=== PATIENT | female | born 1945 | race Caucasian/White ===

== ENCOUNTER → 2018-10-28 10:57 | Outpatient (CLI) | payer MEDICARE, SELFPAY ==
[2018-10-28 13:28] LABS: Body Fluid Mononuclear WBC # 1.953 10^3/uL; Body Fluid Polynuclear WBC # 4.564 10^3/uL; Body Fluid Total Cells Counted 6.525 10^3/ul (0.000-0.000); Red Cell Count/Body Fluid 0.009 10^6/ul; White Blood Count/Body Fluid 6.517 10^3/uL
[2018-10-28 13:44] LABS: Auto B Fluid Analyzer BKGD Ct COUNTS W/IN LIMITS (W/IN LIMITS)
[2018-10-28 13:45] LABS: Appearance/Body Fluid SL CLDY; Color/Body Fluid YELLOW; Source- Body Fluid OTHER
[2018-10-28 15:07] LABS: Body Fluid QC Type(s) BF1Q; Lymphocytes 32 %; Neutrophil (Segs) 68 %
[2018-10-29 14:28] LABS: Pathologist Comment/Body Fluid Reviewed
== END ==
PROVIDERS: Specialist; Referring Provider Family Medicine; Visit Provider Family Medicine
DX: T84.84XA Pain due to internal orthopedic prosthetic devices, implants and grafts, initial encounter (principal)
CPT/HCPCS: 87015; 87070; 87075; 87101; 87116; 87205; 87206; 89050

== ENCOUNTER 2018-12-04 10:58 | Inpatient (IN) | payer MEDICARE, OTHER, SELFPAY ==
[2018-11-25 13:42] VITALS: BP 152/83; PULSE 82; RESP 16; TEMP 36.9; O2SAT 98; BMI 29.9
[2018-11-25 15:00] LABS: Absolute Lymphocyte Count 1.15 X10^3/uL (0.83-4.51); Absolute Neutrophil Count 3.7 X10^3/uL (2.0-7.7); Basophil# 0.03 X10^3/uL; Basophil% 0.5 % (0-1); Eosinophil# 0.03 X10^3/uL; Eosinophils% 0.5 % (0-5); Hematocrit 41.9 % (37-47); Lymphocyte # 1.15 X10^3/ul (4.0); Lymphocyte % 19.3 % (19-41); Mean Corpuscular Hgb 27.7 pg (27.0-32.0); Mean Corpuscular Volume 89.3 fL (81-99); Mean Platelet Vol. 10.5 fl (6.2-12.0); Monocyte# 0.99 X10^3/uL; Monocyte% 16.6 % (0-10); NRBC Flagged by Analyzer 0 % (0-5); Neutrophil % 62.3 % (47-70); Platelet Count 189 K/mm3 (150-450); RBC Distribution Width CV 14.2 % (11.6-14.6); RBC Distribution Width SD 46.5 fl (35.1-43.9); Red Blood Count 4.69 M/mm3 (4.2-5.4)
[2018-11-25 15:34] LABS: Anion Gap 5 (5-15); BUN 18 mg/dL (7-18); BUN/Creat Ratio 23.1 RATIO (10-20); Calcium,Total 8.9 mg/dL (8.5-10.1); Chloride 107 mmol/L (98-107); Creatinine, Serum 0.78 mg/dL (0.55-1.02); EST Glomerular Filtration Rate 77 mL/min (>60); Est Glom Filt Rate - Afr Amer 93 mL/min (>60); Estimated Creatinine Clearance 44.56 ml/min; Glucose 78 mg/dL (74-106); Potassium 3.3 mmol/L (3.5-5.1); Sodium Level 143 mmol/L (136-145)
--- NOTE | 2018-11-25 23:13 | HP.PCM_ITS ---
History and Physical Patient Name: Hilary Escamilla : 1945 From: DERICK TOUSSAINT PA-C DATE OF SURGERY: 12/04/2018 SCHEDULED PROCEDURE: left knee revision with possible antibiotic spacer with intraoperative pathology HISTORY OF PRESENT ILLNESS: Preoperative history and physical exam was performed on November 25, 2018. This is a 73-year-old female whose been having ongoing pain in her left knee. Patient has undergone a previous left partial knee replacement in 2009. She underwent a revision from a partial to a total knee replacement in [address] Parmar. This was then followed by a manipulation of the left knee 3 months later. She has continued to have pain and stiffness since the surgery. Patient denied any postoperative infections. Patient also states she has had a previous aspiration from another joint specialist in which she was told she had findings consistent for an infection. Patient's pain can reach a size of 7/10 with activity. Pain has been aching, stabbing, and sore. Pain is increased going up and down stairs, sitting for extended periods of time, and walking. She has difficult time with activities of daily living including bathing, dressing, and housework. Patient occasionally uses a walker. She has tried nonsteroidal anti-inflammatory meloxicam. Patient has medical history pertinent for back surgery, hypertension, fibromyalgia, ulcers. She currently denies any chest pain, shortness of breath, fevers chills, or recent infections. We are obtaining surgical clearance from her plant operations engineer as well as primary care physician. Patient is scheduled for an upcoming stress test. After failing conservative measures and discussing treatment options with Dr. Ferdinand Gonsales, the patient would like to proceed with a left knee revision with possible antibiotic spacer with intraoperative pathology. REVIEW OF SYSTEMS: ROS: Const: Denies change in appetite, fever and weight change. CV: Denies chest pain, heart murmur and irregular heartbeat. Resp: Reports shortness of breath, but denies cough, pneumonia, tuberculosis and wheezing. GI: Reports hiatal hernia and nausea, but denies constipation, diarrhea, heartburn, rectal itching, bloody stools and vomiting. : Denies incontinence. Musculo: Reports leg swelling, trouble walking and weakness, but denies pain. Skin: Denies Raynaud's, history of shingles and tattoo. Neuro: Reports numbness/tingling but denies ambulatory dysfunction, dizziness and tremor. Psych: Reports stress, but denies anxiety and insomnia. Alex/Lymph: Reports bleeding/bruising tendency, but denies anemia and past transfusion. Reviewed and updated. PAST MEDICAL HISTORY: Advance Care Plan: Other Directive, POA Effective Date: 10/28/2018 Other Directive, LIVING WILL Effective Date: 10/28/2018 PMH: Medical Problems: Arthritis, Fibromyalgia, High Blood Pressure, Hypercholesterolemia, Ulcers, Vascular Disease/ Peripheral Accidents: None Surgical Hx: Bunion Lt, Bunion Rt, Carpal Tunnel Release Lt, Carpal Tunnel Release Rt Knee Replacement Lt - (2017) LT Leg, RT Shoulder Replacement, Back SX Anesthesia Complications: None Assistive Devices: Dentures - TOP, Glasses, Walker Reviewed and updated. SOCIAL HISTORY: SH: Marital: .Occupation: Retired.Work Status: Retired.Hand Dominance: Right- handed. Personal Habits: Cigarette Use: Former.Smokeless Tobacco: Never Used Smokeless Tobacco.E-Cigarette Use: Never used.Alcohol: Denies use.Drug Use: Denies Use.Enjoy Exercising: Never Exercises. Reviewed, no changes. VITALS: Ht: 58 Wt: 173lb Wt k.473 BMI: 36.2 BP: 166/101 Pulse: 79 Resp: 16 T: 97.7 T: 36.5C ALLERGIES: Penicillin Morphine MEDICATIONS: Nexium 40 mg 1po qday, Zetia 10 mg 1po qday, Labetalol HCL 200 mg 1 tab PO bid, Lisinopril 40 mg 1po qday, Aspirin 81 mg 1 tab PO daily, Rosuvastatin Calcium 40 mg 1po qday, Excedrin Extra Strength 250-250-65 mg prn PRE-OP EXAM: General appearance:NORMAL Other: Eyes: Conjunctivae and lids: NORMAL Pupils: ERR Ears, Nose, Mouth, and Throat: NORMAL Other: Inspection of lips, teeth and gums: NORMAL Other: Neck: Examination of neck: no masses noted. Respiratory: Assessment of respiratory effort: NORMAL Other: Auscultation of lungs: clear to auscultation no wheezes, rhonchi or rales. Cardiovascular: Auscultation of heart: regular rate and rhythm, no murmurs, gallops or rubs. Gastrointestinal: Exam of abdomen: soft, nontender, nondistended bowel sounds present. PHYSICAL EXAMINATION: Patient does walk with an antalgic gait with use of walker. Left knee incision is well-healed without erythema or signs of infection. Left knee is warm to touch. Patient does have moderate effusion. Range of motion: Lacks 10 of full extension to 105 flexion. Stable to anterior drawer testing. Sensation intact to light touch. IMAGING STUDIES: Previous x-rays of the left knee shows a well fixed left total knee replacement. The femoral implant is proud anteriorly. The patella tracks well on the sunrise view. Synovasure is negative for infections and cultures were negative. Patient does have a mildly elevated white blood cell count with borderline PMN percentage. IMPRESSION: 1. Painful left total knee arthroplasty with possible infection 2. Hypertension 3. Fibromyalgia 4. Hypercholesterolemia 5. Ulcers 6. Peripheral vascular disease PLAN: Dr. Ferdinand Gonsales did discuss and review with the patient all treatment options including surgical versus nonsurgical options. Patient does wish to proceed with the above-stated procedure. Potential risks, benefits, and complications of the procedure were discussed in detail including but not limited to , infection, nerve and blood vessel damage, persistent pain, numbness, tingling, paresthesias, blood clot, pulmonary embolism, and requirement for possible further surgery. The patient expressed full understanding and has no further questions for the doctor. Patient does agree to proceed with the above-stated procedure and has signed the surgery consent form. This dictation was created using voice recognition software. Phonetic and/or grammatical errors may exist. ___ I have re-examined the patient. There are no clinical changes since date of exam. ___ See progress notes for changes. ___ Dictated on admission Date: Time: Signature:
[2018-12-04] VITALS (13 sets, daily range): BP systolic 102–173; BP diastolic 63–96; PULSE 83–89; RESP 16–18; TEMP 36.7–37.2; O2SAT 84–99; BMI 29.9; BMI 31.6
--- NOTE | 2018-12-04 | KNEE_PTH ---
PATIENT: ELISHA MINOR LOC: MS3 U#:[id number] AGE/SX: 73/F ROOM: MS308 RE12/04/[address]: Dr. Ferdinand Gonsales MD : 1945 BED: 1 DIS: 12/09/2018 SPEC #: [id number] RECD: 12/04/18 15:09 STATUS: RIVER REQ #: [id number] VIK: 12/04/18 00:[address]: Ferdinand Gonsales DEPT: SURGICAL PATHOLOGY RECD BY: Larissa Fernandes ENTERED: 12/04/18 15:40 SP TYPE: TOTAL KNEE OTHR DR: Dr. Amilcar Connors MD Tissues: A - Knee, NOS B - Knee, NOS Procedures: Frozen Section (charge) Frozen Section Add'l ([facility]) Surgery Specimen Level IV HEADER OPERATION: Left knee revision, antibiotic spacer, intraoperative pathology PRE-OP DIAGNOSIS: Painful left total knee arthroplasty with possible infection TISSUE SUBMITTED: A - Left knee synovium for FS at 1509, B - Left knee tibial membrane for FS at 1520 FROZEN SECTION DIAGNOSIS A. Left knee synovium, biopsy: Acute inflammation present. AM:yaa 12/04/18 Case has been reviewed in consultation with Dr. Angulo who concurs with the above diagnosis. IDC:AMBERLY B. Left knee tibial membrane: The specimen entirely consists of fibrinous material. No tissue is noted. SJ:yaa 12/04/18 MICROSCOPIC DIAGNOSIS A. Left knee synovium, biopsy: Focal acute inflammation. Fibrous tissue with abundant fibrinoid material. See comment. B. Left knee tibial membrane, biopsy: Amorphous, proteinaceous material. Rare degenerative epithelioid/inflammatory cells. No evidence of definite acute inflammation. See comment. AM:yaa 12/05/18 COMMENT A. The acute inflammation is noted immediately beneath the synovium and involving portions of the synovial lining. Neutrophils in this area range from 5 to 20 per high-powered field. Clinical correlation is suggested. B. Clinical correlation is suggested. Case has been reviewed in consultation with Dr. Angulo who concurs with the above diagnosis. IDC:AMBERLY MICROSCOPIC DESCRIPTION Slides are reviewed. GROSS DESCRIPTION A - Received fresh for frozen section diagnosis labeled with the patient's name is a specimen designated left knee synovium. The specimen consists of multiple irregular fragments of ulrich-pink soft tissue that in?aggregate measure 7 x 5 x 2.5 cm. A portion of tissue is submitted for frozen section diagnosis. Group Art Supervisor sections are submitted in five cassettes as follows: 1 & 2 - frozen section, 3-5 - additional ict sales representative tissue. B - Received fresh for frozen section diagnosis labeled with the patient's name is a specimen designated left knee tibial membrane. The specimen consists of a piece of ulrich-pink soft tissue measuring 0.8 x 0.5 x 0.2 cm. The entire specimen is submitted for frozen section diagnosis in one cassette. / SJ:rg 12/04/18 TC:2 CPT: 09000 x2, 48981 x2, [id number]
[2018-12-04 12:15] LABS: Bedside Glucose 145 mg/dL (70-110)
[2018-12-04] MEDS: Lactated Ringers 1,000 ML 75 ML IV (12:23)
[2018-12-04] MEDS: Magnesium Sulfate 4gm/100mL 4 GM/100 ML IV.SOLN. IV (12:24)
[2018-12-04] MEDS: Acetaminophen 500 MG Tablet 1000 MG PO ×2 (12:39→21:58)
[2018-12-04] MEDS: Gabapentin 600 MG Tablet PO (12:39)
[2018-12-04] MEDS: Cefazolin 2 GM in 0.9% Normal Saline 100 ML IV (14:32)
[2018-12-04] MEDS: dexAMETHasone 10 MG/ML Vial IV (14:41)
--- NOTE | 2018-12-04 16:41 | OP.PCM_ITS ---
Report of Operation Date of Procedure: 12/04/18 Pre-Operative Diagnosis: Painful left total knee replacement Post-Operative Diagnosis: Painful left total knee replacement, periprosthetic infection Surgery/Procedure Performed:: Removal left total knee replacement, placement of back spacer. Placement of nonbiodegradable antibiotic delivery system left knee Description of Surgical Findings:: Intraoperative pathology was consistent with acute inflammation and infection tire room supervisor: Ousmane Joy Type of Anesthesia:: General Anesthesiologist: Tutu Millard Special Medications: 2 g Ancef, 2 g TXA in the wound at completion of case. In the cement spacer we did use 6 g vancomycin, 2 g Ancef and 4.8 g tobramycin however not all the cement was used as excess cement was debrided. Specimen's removed: 3 separate specimens were sent to microbiology. Specimens were sent to pathology were consistent with acute inflammation/infection. Drains: VAC drain laterally Estimated Blood Loss (mL): 100 Fluids Replaced: 1200 mL crystalloid Description of Procedure: Implants used: [place] triathlon size 5 CR knee, 11 mm #4 CR poly Brief history operative indications: 73-year-old female who had conversion of partial to total knee replacement on the left in 2017 and had pain and swelling ever since. She did at one point get a manipulation by her primary surgeon. She was worked up and found to have marginal criteria for infection. I also worked her up patient had elevated ESR and CRP, elevated white blood cells 6500 and PMNs were 70%. Alpha defense and was negative. Aspiration was negative for organisms. In the office we discussed appropriate treatment. Explained the patient that she was borderline for infection. We elected to proceed with intraoperative pathology if there was negative we would proceed with vision knee replacement if it was positive we would proceed with two-stage revision and antibiotic spacer. Risks and benefits of the procedure were discussed the patient including balance to blood loss, DVTs, PEs, nervous damage, infection, the risk of anesthesia including loss of life. We also discussed postoperative course of both antibiotic spacer and revision total knee replacement. Patient wished to proceed and preoperative clearance was obtained. Procedure: On the date of procedure patient's left lower extremity was marked in the preoperative area. The patient was then taken back to the operating room where the patient was placed on the table in the supine position. All bony prominences were identified a well-padded. Anesthesia assumed control of the C-spine and airway and remained controlled throughout the remainder of the procedure. A tourniquet was placed on the left upper thigh and the leg was prepped in a sterile fashion. The surgeon then scrubbed at this time. Upon reentering the room left lower extremity was draped in a standard orthopedic fashion. A timeout was then called and everyone agreed upon the side, the site, the procedure to be performed, patient's identity and antibiotics given. An Esmarch bandage was used to exsanguinate the extremity and the tourniquet was placed up to 250 mmHg with the knee in flexion. A midline skin incision was made using the previous incision and extending it proximally and distally to identify normal tissue planes. Medial and lateral flaps were developed appropriate releases. The standard medial parapatellar arthrotomy was made and the patella was subluxed laterally. At this time an aggressive synovectomy was performed re-creating the medial gutter first, then the suprapatellar pouch than the lateral gutter. Once this was completed the knee was flexed up an osteotome was used to remove the tibial polyethylene. The remainder of the synovium was debrided. The standard deep MCL release was done and the patella scar pad was resected and lateral releases were performed. Next our attention was directed to the femur. Wear flexible osteotomes and TPS saw were used to break up the implant bone interface. This was done both medially and laterally. After this is adequately lucent bone tamp was used to remove the femur component from the end of the bone. This was done with minimal bone loss. At this time attention was now directed towards the proximal tibia. Osteotome and TPS saw were then used to break up the proximal tibia implant interface and stacked osteotomes were used to remove the tibial implant. Once this was done it was evident with patient's previous stemmed implants she did have some significant metaphyseal bone loss which would need cones at the next vision. At this time we focused on the bone ends sclerotic bone was removed and a cleanup cut was made on the tibia. We then focused down each canal first the femur we used osteotomes and a drill to remove the central cement mantle from the canal. Once this was completed we removed the membrane from the femur. Part of this membrane was sent for culture. Next our attention was directed at the tibia. We again focused on the canal. Both canals were then reamed out with a 15 mm reamer to finish the debridement. We then focused our attention on the bone ends. Any residual cement was removed and the bone ends using a rondure and bur. Knee was then placed in extension and the remainder of the posterior knee was debrided. We then everted the patella where a TPS saw was used to separate the bone cement interface and remove the patella component. Bur was then used to remove the patella pegs. Once this was done tourniquet was let down and hemostasis was obtained using a aqua mantis. 6 L of normal saline with a irrigated throughout the wound under low-pressure lavage while cement dowels with antibiotics were mixed on the back table. We used the 15 mm reamer to do the appropriate size. These were allowed to cure on the back table. Once the wound was adequately debrided and irrigated out we then placed a size 3 femur on the end of the femur and size her polyethylene which was 19 mm polyethylene. Final components were opened and the size 4, 19mm polyethylene was turned over in the back was scored using a bur. Once was done the second batch of antibiotic laden cement was mixed. The antibiotic laden cement dowels were placed in the femoral and tibial canals. The cement was used to fill the bone defects and the tibia was cemented into place first. Femoral component was then cemented into place and the knee was placed in extension. The cement was allowed to cure. Chlorhexidine lavage was then used to lavage of the joint. This was followed by normal saline. Drain was placed laterally. Wound was closed using #1 Vicryl suture running the arthrotomy after initially closing a previous rent in the arthrotomy with interrupted sutures. Final skin closure was done with 2-0 Vicryl final skin closure was done with leila. A sterile compressive dressing was then placed. Patient was placed in a knee immobilizer the patient was then awakened from anesthesia, transferred to the [facility] and transferred to the PACU for recovery. Post op plan DVT ppx: Xarelto, thigh high compression stockings Follow up: in office in 2 weeks for wound check and to begin range of motion PT: to start POD #0 at hospital, toe-touch weightbearing for 2 weeks followed by 80% partial weightbearing Infection: Patient will be started on antibiotics postoperatively. Infectious disease will be consulted. She will receive 6 weeks of IV antibiotics followed by a antibiotic holiday and eventually revision knee replacement. My physician assistant community director was a vital part of this case. He was important in appropriate retraction during the case, and protection of soft tissues during bony cuts. His intimate knowledge of the case and my steps aided in safe and expedient completion of the procedure as well as appropriate position of the leg during the case. He was also vital in assisting with closure under my direct supervision. Grafts/Implants Used: Nesha CR size 3 femur, 4/19 mm polyethylene - Complications No intraoperative complications - Admit VTE Documentation VTE Present on Admission: No VTE Mechan Device Prophylaxis: SCD's, Thigh High KERWIN Hose VTE Pharm Prophylaxis ordered?: Yes
--- NOTE | 2018-12-04 16:51 | RAD_ITS ---
STUDY: X-RAY - LEFT KNEE REASON FOR EXAM: Female, 73 years old. Postop TECHNIQUE: 2 view(s) of the knee. COMPARISON: None. FINDINGS: Status post placement of a femoral component of a knee replacement. Cement is noted filling the tibial component tract and a spacer is in place at the femorotibial compartment. Post surgical changes in the adjacent soft tissue drain in place recently was present anteriorly. RAD/Knee 1 or 2 Views IMPRESSION: Postsurgical changes as noted of the knee. Electronically Signed: Tommy Mayes DO at 18:10 EDT Tel [phone], Service support ,
[2018-12-04] MEDS: Lactated Ringers 1,000 ML 999 ML IV (17:20)
[2018-12-04] MEDS: Lactated Ringers 1,000 ML 125 ML IV (18:54)
--- NOTE | 2018-12-04 19:58 | PCM.CONS.GEN ---
Problem List (1) Joint infection Status: Suspected (2) Osteoarthritis of left knee Status: Chronic Qualifiers: Osteoarthritis type: unspecified Qualified Code(s): M17.12 - Unilateral primary osteoarthritis, left knee (3) HTN (hypertension) Status: Chronic Qualifiers: Hypertension type: essential hypertension Qualified Code(s): I10 - Essential (primary) hypertension (4) HLD (hyperlipidemia) Status: Chronic Qualifiers: Hyperlipidemia type: unspecified Qualified Code(s): E78.5 - Hyperlipidemia, unspecified (5) PVD (peripheral vascular disease) Status: Chronic (6) Fibromyalgia Status: Chronic (7) GERD (gastroesophageal reflux disease) Status: Chronic Qualifiers: Esophagitis presence: esophagitis presence not specified Qualified Code(s): K21.9 - Gastro-esophageal reflux disease without esophagitis (8) Obesity (BMI 30.0-34.9) Status: Chronic Reason for Consult Date of Consultation: 12/04/18 Reason for Consultation: Medical consultation History of Present Illness: The patient is a 73 y/o F w/ PMHx: HTN, HLD, GERD, Obesity, OA, PVD, Chronic back pain who presents to the [facility] on 12/04/18 for planned L knee revision secondary to ongoing debilitating pain despite outpatient conservative interventions per Dr. Gonsales. Patient had previous left partial knee replacement in 2009 with a revision in 2017 followed by manipulation of that left knee 3 months later with ongoing pain and stiffness following operative intervention with a possible prior aspiration from a different joint specialist with questionable infection. Patient ended up having removal of the left total knee replacement with the placement of a spacer with a nonbiodegradable antibiotic delivery system to the left knee as findings were felt consistent with acute inflammation and possible infection. Work-up included most recent labs prior to operative intervention with CBC with WBC 6, hemoglobin 13, platelet 199 with no market left shift, BMP with potassium 3.3 otherwise not market appearing, knee tissue gram stains and cultures pending per Dr. Gonsales, postoperative plain film of the knee with postsurgical changes. Hospitalist physician requested consultation for medical management. Past Medical History Past Medical History (Chronic Problems): Chronic Problems Osteoarthritis of left knee (Chronic) HTN (hypertension) (Chronic) HLD (hyperlipidemia) (Chronic) PVD (peripheral vascular disease) (Chronic) Fibromyalgia (Chronic) GERD (gastroesophageal reflux disease) (Chronic) Obesity (BMI 30.0-34.9) (Chronic) Allergies morphine Allergy (Verified 12/04/18 11:47) Other unable to talk Penicillins [PCN] Allergy (Verified 12/04/18 11:47) Rash Home Medications: Ambulatory Orders Medication Instructions Recorded Aspirin [Aspirin, Baby] 81 mg PO DAILY@0800 11/25/18 Esomeprazole Mag Trihydrate 40 mg PO DAILY 11/25/18 [Nexium] Ezetimibe [Zetia] 10 mg PO DAILY 11/25/18 Labetalol [Trandate] 200 mg PO BID 11/25/18 Lisinopril [Zestril] 20 mg PO DAILY 11/25/18 Mesalamine [Apriso] 0.75 gm PO BID 11/25/18 Rosuvastatin Calcium [Crestor] 40 mg PO DAILY 11/25/18 Surgical History: - - Left and right bunionectomies, Left Carpal Tunl. and Right Carpal Tunl. release, left partial knee replacement and revision as well as manipulation and recent repeat revision, right shoulder replacement, back surgery, left lower extremity surgery. 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 Denies: Chills, Fever, Weight Change HEENT: Denies: Head Aches, Sinus Congestion, Sinus Drainage Cardiovascular: Denies: Chest Pain, Palpitations Respiratory: Denies: Cough, Shortness of breath at rest, Sputum production Gastrointestinal: Reports: Nausea. Denies: Abdominal Pain, Vomiting Genitourinary: Denies: Dysuria Musculoskeletal: Reports: Back Pain, Joint Pain, Joint stiffness, Joint swelling, Joint Tenderness, Leg Pain Skin: Denies: Rash, Wounds Neurological: Denies: Numbness, Tingling, Focal weakness Psychiatric: Denies: Anxiety, Depression, Homicidal Ideations, Suicidal Ideations Hematologic/ Lymphatic: Denies: Easy Bruising, Easy Bleeding Patient Problems: Active and Suspected Problems Joint infection (Suspected) Subjective: Seated upright in the MS bed, fatigued appearing, holding emesis bag, recent zofran, feeling mildly improved. Objective: Physical Examination: General: awake, alert, oriented x 3 and cooperative, seated upright in the MS bed, recent nausea, improving. Skin: normal color, turgor, no icterus, cyanosis, left knee with dressing and brace in place. HEENT: AT/NC, EOMI, PERRLA, moderately dry MM, no carotid bruits or JVD noted. Lungs: CTA bilaterally, moderate effort, moderate decrease BL bases, no rales, ronchi or wheezing. Heart: Regular rate and rhythm; no gallop, rub audible. Abdomen: soft, obese, NTTP, ND, normal BS, no HSM. Extremities: no cyanosis, clubbing, BL ankle edema, minimal, s/p L knee surgery as noted, dressing and brace in place. Neurological: patient awake, alert, oriented x 3; cognitive function intact; pupils equally reactive to light and accomodation; cranial nerves II-XII grossly normal, moving all 4 extremities although expected limitation L knee given recent OR, strength accordingly severely globally decreased. Psychiatric: affect appears mildly flat, fatigued, no acute evidence of depressive or anxiety feelings. - Physical Exam Vitals/I&O's: Vital Signs Temp Pulse Resp BP Pulse Ox 98.3 F 83 18 109/69 94 12/04/18 19:27 12/04/18 19:27 12/04/18 19:27 12/04/18 19:27 12/04/18 19:27 Oxygen Flow Rate (L/min) 6 Oxygen Delivery Method Room Air Weight: 184 lb Body Mass Index (BMI) 31.6 Intake and Output for Last 24 Hours 12/02/18 12/03/18 12/04/18 23:59 23:59 23:59 Intake Total 2370 / 2370 Output Total 140 / 140 Balance 2230 / 2230 Laboratory Results 12/04/18 12:01: POC Glucose 145 H Current Medications Acetaminophen (Tylenol) 1,000 mg PO Q8 [facility] Aspirin (Aspirin, Baby) 81 mg PO DAILY@0800 [facility] Atorvastatin Calcium (Lipitor) 80 mg PO QHS [facility] Ezetimibe (Zetia) 10 mg PO DAILY [facility] Enteral Nutritional Formula (Ensure Surgery) 237 ml PO TIDCM [facility] Last Admin: 12/04/18 18:02 Dose: Not Given Documented by: Famotidine (Pepcid) 20 mg PO DAILY [facility] Lactated Ringer's () 1,000 mls @ 75 mls/hr IV .[id number] [facility] Last Infusion: 12/04/18 16:30 Dose: Infused Documented by: Lactated Ringer's () 1,000 mls @ 125 mls/hr IV .Q8H [facility] Last Admin: 12/04/18 18:54 Dose: 125 mls/hr Documented by: Cefazolin Sodium () 1 gm in 50 mls @ 150 mls/hr IV Q8 [facility] Stop: 12/05/18 06:19 Insulin Human Lispro (Humalog Kwikpen (Bkc)) 1 - 6 unit SC Q4H PRN PRN; Protocol PRN Reason: BG>/= 180, SEE PROTOCOL Stop: 12/04/18 20:10 Ketorolac Tromethamine (Toradol) 15 mg IV Q6H PRN PRN PRN Reason: Pain Score 1-5/10 Stop: 12/06/18 16:51 Labetalol HCl (Trandate) 200 mg PO BID [facility] Lisinopril (Zestril) 20 mg PO DAILY [facility] Meloxicam (Mobic) 7.5 mg PO BID [facility] Morphine Sulfate () 2 - 4 mg IV Q2H PRN PRN PRN Reason: Pain Score 6-10/10 Morphine Sulfate () 2 - 4 mg IV Q2H PRN PRN PRN Reason: Pain Score 6-10/10 Non-Formulary Medication (Mesalamine) 0.75 gm PO BID [facility] Ondansetron HCl (Zofran) 4 mg IV Q8H PRN PRN PRN Reason: NAUSEA Oxycodone HCl (Oxyir) 5 - 10 mg PO Q4H PRN PRN PRN Reason: Pain Score 4-10/10 Pantoprazole Sodium (Protonix) 40 mg PO DAILY [facility] Promethazine HCl (Phenergan) 12.5 mg IM Q6H PRN PRN; Protocol PRN Reason: NAUSEA/VOMITING Rivaroxaban (Xarelto) 10 mg PO DAILY@0600 [facility] Senna/Docusate Sodium (Senokot-S, Tonya-Colace) 2 tablet PO BID [facility] Assessment/Plan The patient is a 73 y/o F w/ PMHx: HTN, HLD, GERD, Obesity, OA, PVD, Chronic back pain who presents to the [facility] on 12/04/18 for planned L knee revision secondary to ongoing debilitating pain despite outpatient conservative interventions per Dr. Gonsales. (1) Severe Osteoarthritis, L Knee s/p prior Partial Knee Replacement with possible joint infection: Failed conservative therapies and treatments, admitted per Dr. Gonsales, s/p 12/04/18 removal left total knee replacement with placement of spacer with unknown biodegradable antibiotic delivery system with pending operative cultures as findings consistent with acute inflammation and possible infection, post-operative pain management, bowel regimen, DVT Prophylaxis, PT/OT/CM per Orthopedic surgery discretion. (2) Hypertension: Continue home regimen including labetalol, lisinopril, PRN hydralazine. (3) Hyperlipidemia: Continue home statin and Zetia regimen. (4) PVD: Continue home aspirin, statin as well as BP regimen. (5) Obesity: Weight loss and lifestyle changes encouraged. (6) GERD: Maintained on PPI. (7) DVT prophylaxis: SCDs, Xarelto per orthopedic surgery discretion. Code Visit Inpatient E&M: 84103 Subs Hosp L3
[2018-12-04] MEDS: Morphine 2 MG/ML Syringe IV (20:13)
[2018-12-04] MEDS: Ondansetron 4 MG/2 ML Vial IV (20:17)
[2018-12-04] MEDS: Senna/Docusate Sodium 1 Tablet 2 TABLET PO (21:57)
[2018-12-04] MEDS: Atorvastatin Calcium 80 MG Tablet PO (21:58)
[2018-12-04] MEDS: Meloxicam 7.5 MG Tablet PO (21:58)
[2018-12-04] MEDS: Labetalol 200 MG Tablet PO (21:58)
[2018-12-04] MEDS: Cefazolin 1 GM/50 ML BAG IV (22:06)
[2018-12-04] MEDS: Ketorolac 15 MG/ML Vial IV (22:09)
[2018-12-04] MEDS: proMETHazine 25 MG/ML Syringe 12.5 MG IM (22:09)
[2018-12-05] VITALS (12 sets, daily range): BP systolic 101–133; BP diastolic 49–76; PULSE 77–97; RESP 15–19; TEMP 36.4–37.4; O2SAT 91–97
[2018-12-05] MEDS: Ondansetron 4 MG/2 ML Vial IV ×2 (04:08→12:26)
[2018-12-05] MEDS: 0.9% Saline Lock 10 ML Syringe IV ×3 (04:08→18:03)
[2018-12-05] MEDS: Ketorolac 15 MG/ML Vial IV ×2 (04:09→18:03)
[2018-12-05] MEDS: proMETHazine 25 MG/ML Syringe 12.5 MG IM (04:50)
[2018-12-05] MEDS: Morphine 2 MG/ML Syringe IV ×4 (04:50→20:15)
[2018-12-05] MEDS: Acetaminophen 500 MG Tablet 1000 MG PO ×3 (05:29→22:12)
[2018-12-05] MEDS: Cefazolin 1 GM/50 ML BAG IV (05:29)
[2018-12-05] MEDS: Rivaroxaban 10 MG Tablet PO (05:30)
[2018-12-05 05:46] LABS: Hematocrit 35.4 % (37-47); Hemoglobin 10.8 g/dL (12.0-15.0); Mean Corp Hgb Conc 30.5 g/dL (32-36); Mean Corpuscular Hgb 27.8 pg (27.0-32.0); Mean Platelet Vol. 10.7 fl (6.2-12.0); Platelet Count 167 K/mm3 (150-450); RBC Distribution Width CV 14.6 % (11.6-14.6); RBC Distribution Width SD 48.8 fl (35.1-43.9); Red Blood Count 3.89 M/mm3 (4.2-5.4); White Blood Count 12.5 K/mm3 (4.4-11.0)
[2018-12-05 06:09] LABS: Anion Gap 7 (5-15); BUN 27 mg/dL (7-18); BUN/Creat Ratio 28.3 RATIO (10-20); Calcium,Total 8.4 mg/dL (8.5-10.1); Chloride 104 mmol/L (98-107); Creatinine, Serum 0.95 mg/dL (0.55-1.02); EST Glomerular Filtration Rate 61 mL/min (>60); Est Glom Filt Rate - Afr Amer 74 mL/min (>60); Glucose 126 mg/dL (74-106); Potassium 4.8 mmol/L (3.5-5.1); Sodium Level 141 mmol/L (136-145)
[2018-12-05] MEDS: Aspirin 81 MG TAB.CHEW PO (08:59)
[2018-12-05] MEDS: Pantoprazole Sodium 40 MG Tablet PO (09:04)
[2018-12-05] MEDS: MESALAMINE 0.375 GM CAP.ER.24H 0.75 GM PO ×2 (09:05→22:11)
[2018-12-05] MEDS: Meloxicam 7.5 MG Tablet PO ×2 (09:06→22:12)
[2018-12-05] MEDS: Famotidine 20 MG Tablet PO (09:06)
[2018-12-05] MEDS: Senna/Docusate Sodium 1 Tablet 2 TABLET PO ×2 (09:07→22:13)
--- NOTE | 2018-12-05 09:07 | PCM.PN.ORT ---
Patient Problems: Active and Suspected Problems Joint infection (Suspected) Subjective: The patient was sitting in bed eating breakfast upon examination. Patient denies any chest pain, shortness of breath, dizziness, lightheadedness, nausea or vomiting, or calf pain. Pain is controlled on medications. No adverse overnight events. Patient states pain has been managed with regards to her left knee. I did explain to the patient postoperative treatment with regards to her antibiotic spacer in detail. Objective: Vital signs stable and afebrile. Patient is able to plantarflex and dorsiflex actively. Sensation is intact to light touch to saphenous, sural, superficial and deep peroneal, and tibial distribution. Dressing is clean dry and intact. Hemovac drain in place: 360 mL's have been removed from Hemovac drain since surgery Knee immobilizer in place fitting well. Negative Homans bilaterally, negative signs and symptoms of DVT. - Physical Exam Vitals/I&O's: Vital Signs Temp Pulse Resp BP Pulse Ox 97.6 F L 90 15 116/68 91 12/05/18 07:58 12/05/18 07:58 12/05/18 07:58 12/05/18 07:58 12/05/18 07:58 Oxygen Flow Rate (L/min) 2 Oxygen Delivery Method Room Air Weight: 83.461 kg Body Mass Index (BMI) 31.6 Intake and Output for Last 24 Hours 12/03/18 12/04/18 12/05/18 23:59 23:59 23:59 Intake Total 2822.08 / 3072.08 1372.92 / 1372.92 Output Total 140 / 410 645 / 645 Balance 2682.08 / 2662.08 727.92 / 727.92 General: Alert, Oriented x3, Cooperative, No apparent distress Laboratory Results 12/04/18 12:01: POC Glucose 145 H 12/05/18 05:00: WBC 12.5 H, RBC 3.89 L, Hgb 10.8 L, Hct 35.4 L, MCV 91.0, MCH 27.8, MCHC 30.5 L, RDW Std Deviation 48.8 H, RDW Coeff of Adriano 14.6, Plt Count 167, MPV 10.7 12/05/18 05:00: Sodium 141, Potassium 4.8, Chloride 104, Carbon Dioxide 30.0, Anion Gap 7, BUN 27 H, Creatinine 0.95, Estim Creat Clear Calc 46.90, Est GFR (MDRD) Af Amer 74, Est GFR (MDRD) Non-Af 61, BUN/Creatinine Ratio 28.3 H, Glucose 126 H, Calcium 8.4 L Current Medications Acetaminophen (Tylenol) 1,000 mg PO Q8 [facility] Last Admin: 12/05/18 05:29 Dose: 1,000 mg Documented by: Aspirin (Aspirin, Baby) 81 mg PO DAILY@0800 [facility] Atorvastatin Calcium (Lipitor) 80 mg PO QHS [facility] Last Admin: 12/04/18 21:58 Dose: 80 mg Documented by: Ezetimibe (Zetia) 10 mg PO DAILY [facility] Enteral Nutritional Formula (Ensure Surgery) 237 ml PO TIDCM [facility] Last Admin: 12/04/18 18:02 Dose: Not Given Documented by: Famotidine (Pepcid) 20 mg PO DAILY [facility] Lactated Ringer's () 1,000 mls @ 75 mls/hr IV .[id number] [facility] Last Admin: 12/05/18 03:07 Dose: Not Given Documented by: Lactated Ringer's () 1,000 mls @ 125 mls/hr IV .Q8H [facility] Last Infusion: 12/05/18 05:01 Dose: Infused Documented by: Ketorolac Tromethamine (Toradol) 15 mg IV Q6H PRN PRN PRN Reason: Pain Score 1-5/10 Stop: 12/06/18 16:51 Last Admin: 12/05/18 04:09 Dose: 15 mg Documented by: Labetalol HCl (Trandate) 200 mg PO BID [facility] Last Admin: 12/04/18 21:58 Dose: 200 mg Documented by: Lisinopril (Zestril) 20 mg PO DAILY [facility] Meloxicam (Mobic) 7.5 mg PO BID [facility] Last Admin: 12/04/18 21:58 Dose: 7.5 mg Documented by: Mesalamine (Apriso) 0.75 gm PO BID [facility] Morphine Sulfate () 2 - 4 mg IV Q2H PRN PRN PRN Reason: Pain Score 6-10/10 Last Admin: 12/05/18 04:50 Dose: 2 mg Documented by: Morphine Sulfate () 2 - 4 mg IV Q2H PRN PRN PRN Reason: Pain Score 6-10/10 Ondansetron HCl (Zofran) 4 mg IV Q8H PRN PRN PRN Reason: NAUSEA Last Admin: 12/05/18 04:08 Dose: 4 mg Documented by: Oxycodone HCl (Oxyir) 5 - 10 mg PO Q4H PRN PRN PRN Reason: Pain Score 4-10/10 Pantoprazole Sodium (Protonix) 40 mg PO DAILY [facility] Promethazine HCl (Phenergan) 12.5 mg IM Q6H PRN PRN; Protocol PRN Reason: NAUSEA/VOMITING Last Admin: 12/05/18 04:50 Dose: 12.5 mg Documented by: Rivaroxaban (Xarelto) 10 mg PO DAILY@0600 [facility] Last Admin: 12/05/18 05:30 Dose: 10 mg Documented by: Senna/Docusate Sodium (Senokot-S, Tonya-Colace) 2 tablet PO BID [facility] Last Admin: 12/04/18 21:57 Dose: 2 tablet Documented by: Sodium Chloride () 10 - 40 ml IV UD PRN PRN Reason: SALINE FLUSH Last Admin: 12/05/18 04:50 Dose: 10 ml Documented by: Medical Necessity - Tobacco Use Smoking Status: Former smoker Tobacco Use: Non-smoker Assessment/Plan 1. S/P explant left total knee arthroplasty with placement of antibiotic spacer POD #1 2. Continue Pain Medications: Tylenol and OxyIR 3. DVT Prophylaxis: Xarelto for 2 weeks postoperatively then will switch over to baby aspirin twice daily for an additional 2 weeks at 2-week postop visit 4. PT/OT: Toe-touch weightbearing with knee immobilizer on at all times with use of walker. 5. H & H: 10.8/35.4, asymptomatic 6. Reactive leukocytosis: 12.5, afebrile. Patient did receive Decadron intraoperatively 7. Encouraged Incentive Spirometry 8. Continue postoperative medical management per medicine: Appreciate consult and input 9. Infectious disease consult: Appreciate input on appropriate management with antibiotics. Patient will require PICC line in 6 weeks IV antibiotics. 10. Disposition: Case management involved for appropriate discharge and placement. We discussed home health versus custodial facility. Will need to see how patient does with physical therapy and if she requires further assistance.
[2018-12-05] MEDS: Labetalol 200 MG Tablet PO ×2 (09:09→22:12)
[2018-12-05] MEDS: Lisinopril 20 MG Tablet PO (09:10)
[2018-12-05] MEDS: Ezetimibe 10 MG Tablet PO (09:10)
[2018-12-05] MEDS: Ensure Surgery 237 ML LIQUID PO ×2 (09:13→18:07)
--- NOTE | 2018-12-05 09:36 | PN_ITS ---
Patient Problems: Active and Suspected Problems Joint infection (Suspected) Subjective: Chief complaint: Follow-up after consultation for postoperative medical management. Patient seen and examined. No acute events overnight. She complained of left knee pain this morning after she went for physical therapy. Otherwise, no comp laints. Her pain is manageable. Her vital signs are stable. - Physical Exam Vitals/I&O's: Vital Signs Temp Pulse Resp BP Pulse Ox 97.6 F L 90 15 116/68 91 12/05/18 07:58 12/05/18 07:58 12/05/18 07:58 12/05/18 07:58 12/05/18 07:58 Oxygen Flow Rate (L/min) 2 Oxygen Delivery Method Room Air Weight: 184 lb Body Mass Index (BMI) 31.6 Intake and Output for Last 24 Hours 12/03/18 12/04/18 12/05/18 23:59 23:59 23:59 Intake Total 2822.08 / 3072.08 1372.92 / 1372.92 Output Total 140 / 410 645 / 645 Balance 2682.08 / 2662.08 727.92 / 727.92 General: Alert, Oriented x3, Cooperative, No apparent distress HEENT: Atraumatic, PERRLA, EOMI, Normocephalic Oral: Moist Mucosa, No Gingival or Mucosal Lesions/ Ulcerations Neck: Supple, No JVD, Negative Carotid Bruits, Trachea Midline, Thyroid Normal Size and Texture Lungs: Clear to auscultation, Normal air movement, No rhonchi, No wheeze, No rales Cardiovascular: Regular rate, Regular Rhythm, Normal S1, Normal S2, PMI Normal Abdomen: Bowel Sounds Present, Soft, Non Tender, Non-Distended, No Hepato- splenomegaly Extremities: No clubbing, No cyanosis, No edema Skin: No rashes, Incision Lymphatic: No Cervical, Supraclavicular, or Inguinal Adenopathy Neurological: Cranial nerves II-XII grossly intact, Motor Exam 5/5 strength throughout Psych/Mental Status: Normal Affect, Appropriate, Alert and oriented to time, place, person, mood and affect Laboratory Results 12/04/18 12:01: POC Glucose 145 H 12/05/18 05:00: WBC 12.5 H, RBC 3.89 L, Hgb 10.8 L, Hct 35.4 L, MCV 91.0, MCH 27.8, MCHC 30.5 L, RDW Std Deviation 48.8 H, RDW Coeff of Adriano 14.6, Plt Count 167, MPV 10.7 12/05/18 05:00: Sodium 141, Potassium 4.8, Chloride 104, Carbon Dioxide 30.0, Anion Gap 7, BUN 27 H, Creatinine 0.95, Estim Creat Clear Calc 46.90, Est GFR (MDRD) Af Amer 74, Est GFR (MDRD) Non-Af 61, BUN/Creatinine Ratio 28.3 H, Glucose 126 H, Calcium 8.4 L Current Medications Acetaminophen (Tylenol) 1,000 mg PO Q8 [facility] Last Admin: 12/05/18 05:29 Dose: 1,000 mg Documented by: Aspirin (Aspirin, Baby) 81 mg PO DAILY@0800 [facility] Last Admin: 12/05/18 08:59 Dose: 81 mg Documented by: Atorvastatin Calcium (Lipitor) 80 mg PO QHS [facility] Last Admin: 12/04/18 21:58 Dose: 80 mg Documented by: Ezetimibe (Zetia) 10 mg PO DAILY [facility] Last Admin: 12/05/18 09:10 Dose: 10 mg Documented by: Enteral Nutritional Formula (Ensure Surgery) 237 ml PO TIDCM [facility] Last Admin: 12/05/18 09:13 Dose: 237 ml Documented by: Famotidine (Pepcid) 20 mg PO DAILY [facility] Last Admin: 12/05/18 09:06 Dose: 20 mg Documented by: Vancomycin IV Pharmacy to Dose (1 ea/ Sodium Chloride) 500 mls @ 250 mls/hr IV X1 PRN; Protocol PRN Reason: Rx to Dose Ceftriaxone Sodium 2 gm/ (Sodium Chloride) 50 mls @ 100 mls/hr IV Q24 [facility] Ketorolac Tromethamine (Toradol) 15 mg IV Q6H PRN PRN PRN Reason: Pain Score 1-5/10 Stop: 12/06/18 16:51 Last Admin: 12/05/18 04:09 Dose: 15 mg Documented by: Labetalol HCl (Trandate) 200 mg PO BID [facility] Last Admin: 12/05/18 09:09 Dose: 200 mg Documented by: Lisinopril (Zestril) 20 mg PO DAILY [facility] Last Admin: 12/05/18 09:10 Dose: 20 mg Documented by: Meloxicam (Mobic) 7.5 mg PO BID [facility] Last Admin: 12/05/18 09:06 Dose: 7.5 mg Documented by: Mesalamine (Apriso) 0.75 gm PO BID [facility] Last Admin: 12/05/18 09:05 Dose: 0.75 gm Documented by: Morphine Sulfate () 2 - 4 mg IV Q2H PRN PRN PRN Reason: Pain Score 6-10/10 Last Admin: 12/05/18 09:13 Dose: 2 mg Documented by: Morphine Sulfate () 2 - 4 mg IV Q2H PRN PRN PRN Reason: Pain Score 6-10/10 Ondansetron HCl (Zofran) 4 mg IV Q8H PRN PRN PRN Reason: NAUSEA Last Admin: 12/05/18 04:08 Dose: 4 mg Documented by: Oxycodone HCl (Oxyir) 5 - 10 mg PO Q4H PRN PRN PRN Reason: Pain Score 4-10/10 Pantoprazole Sodium (Protonix) 40 mg PO DAILY [facility] Last Admin: 12/05/18 09:04 Dose: 40 mg Documented by: Promethazine HCl (Phenergan) 12.5 mg IM Q6H PRN PRN; Protocol PRN Reason: NAUSEA/VOMITING Last Admin: 12/05/18 04:50 Dose: 12.5 mg Documented by: Rivaroxaban (Xarelto) 10 mg PO DAILY@0600 [facility] Last Admin: 12/05/18 05:30 Dose: 10 mg Documented by: Senna/Docusate Sodium (Senokot-S, Tonya-Colace) 2 tablet PO BID [facility] Last Admin: 12/05/18 09:07 Dose: 2 tablet Documented by: Sodium Chloride () 10 - 40 ml IV UD PRN PRN Reason: SALINE FLUSH Last Admin: 12/05/18 04:50 Dose: 10 ml Documented by: Medical Necessity - Tobacco Use Smoking Status: Former smoker Tobacco Use: Non-smoker Assessment/Plan This is a 73 years old female patient admitted to the hospital for left total knee periprosthetic joint infection, underwent removal of the left knee replacement, placement of back spacer and placement of nonbiodegradable antibiotic delivery system. #1 status post removal of left total knee replacement/placement of back spacer/placement of nonbiodegradable antibiotic delivery system: This was done for periprosthetic left knee infection, postoperative day 1. She is on IV Rocephin and vancomycin. Wound cultures are pending. Vital signs are stable, afebrile. Repeat routine blood work revealed mild leukocytosis and hemoglobin of 10.8 g/dL. She is on IV morphine and OxyIR PRN for pain. Orthopedic surgery is on the case. Infectious disease consulted. Plan to continue same treatment. Plan to repeat CBC tomorrow morning. #2 hypertension: Blood pressure stable, continue lisinopril and labetalol. #3 peripheral vascular disease: Stable, continue aspirin and statins. #4 hyperlipidemia: Continue statins. #5 GERD: Stable, continue Protonix. #6 colitis: Patient is on mesalamine twice daily which was continued. She was started on this almost 1 year ago after diagnosis of colitis, she is not sure what type of colitis. I mentioned ulcerative colitis and Crohn's disease to the patient and she said that she told that she has different form of colitis. She denies any diarrhea or bloody stool. #7 DVT prophylaxis: Continue Xarelto. This note was generated with [employer] dictation software. It may contain incorrect words, spelling, and punctuation that were not noted in checking the note before signing. Code Visit Inpatient E&M: 15076 Subs Hosp L2
--- NOTE | 2018-12-05 10:28 | PCM.HP.ID ---
Problem List (1) Infection of prosthetic left knee joint Status: Acute Reason for Consult: PJI Consulted by: Dr. Gonsales History of Present Illness: The patient is a 73 year old F with 12/2016 revision of partial to total L knee replacement. Since then, ongoing, progressive pain, lateral swelling, and decreased mobility. Had redness and warmth, but no drainage or fever. No recent abx. Saw Dr. Gonsales, aspiration was done, taken to OR 12/04 for exploration and spacer was placed. Feeling ok, pain controlled, no n/v/d. Full ROS performed and neg except as noted above. - Medical History Past Medical History (Chronic Problems): Chronic Problems Osteoarthritis of left knee (Chronic) HTN (hypertension) (Chronic) HLD (hyperlipidemia) (Chronic) PVD (peripheral vascular disease) (Chronic) Fibromyalgia (Chronic) GERD (gastroesophageal reflux disease) (Chronic) Obesity (BMI 30.0-34.9) (Chronic) Allergies/Adverse Reactions: Allergies morphine Allergy (Verified 12/04/18 11:47) Other unable to talk Penicillins [PCN] Allergy (Verified 12/04/18 11:47) Rash Home Medications: Ambulatory Orders Medication Instructions Recorded Aspirin [Aspirin, Baby] 81 mg PO DAILY@0800 11/25/18 Esomeprazole Mag Trihydrate 40 mg PO DAILY 11/25/18 [Nexium] Ezetimibe [Zetia] 10 mg PO DAILY 11/25/18 Labetalol [Trandate] 200 mg PO BID 11/25/18 Lisinopril [Zestril] 20 mg PO DAILY 11/25/18 Mesalamine [Apriso] 0.75 gm PO BID 11/25/18 Rosuvastatin Calcium [Crestor] 40 mg PO DAILY 11/25/18 RX: Ceftriaxone 2 gm IV Q24 40 Days #40 vial 12/05/18 Vancomycin/0.9 % Sod Chloride 1.25 gm IV Q12H 40 Days #80 12/05/18 [Vanco 1.25 gm/250 ml-0.9% NaCl] plast..bag - Social History SMOKING STATUS:: Former smoker Vital Signs Temp Pulse Resp BP Pulse Ox 98.2 F 95 16 105/49 L 95 12/05/18 09:56 12/05/18 09:56 12/05/18 09:56 12/05/18 09:56 12/05/18 09:56 Oxygen Flow Rate (L/min) 2 Oxygen Delivery Method Nasal Cannula Weight: 83.461 kg Body Mass Index (BMI) 31.6 Laboratory Tests Past 24 Hrs 12/05/18 12/05/18 05:00 05:00 WBC 12.5 H RBC 3.89 L Hgb 10.8 L Hct 35.4 L MCV 91.0 MCH 27.8 MCHC 30.5 L RDW Std Deviation 48.8 H RDW Coeff of Adriano 14.6 Plt Count 167 MPV 10.7 Sodium 141 Potassium 4.8 Chloride 104 Carbon Dioxide 30.0 Anion Gap 7 BUN 27 H Creatinine 0.95 Estim Creat Clear Calc 46.90 Est GFR (MDRD) Af Amer 74 Est GFR (MDRD) Non-Af 61 BUN/Creatinine Ratio 28.3 H Glucose 126 H Calcium 8.4 L - Other Studies Radiology: [] reviewed Other Studies: [] Route of nutrition/ use of supplements: [] Nutritional Intake: [] IV Site: [] Hurst Catheter: [] - Physical Exam General: Alert, Oriented x3, Cooperative, No apparent distress HEENT: Atraumatic, PERRLA, EOMI Neck: Supple, No Nodes Lungs: Clear to auscultation, Normal air movement Cardiovascular: Regular rate, Regular Rhythm, No murmurs Abdomen: Soft, Non Tender, Non-Distended Extremities: No edema Skin: No rashes IV Site: Peripheral, without redness Musculoskeletal: - - LLE wrapped s/p OR Neurological: Cranial nerves II-XII grossly intact - Assessment/Plan Antibiotics: [] Assessment/Plan: [] Active and Suspected Problems Joint infection (Suspected) 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 Gonsales. Surg cx pending. Aspiration from 10/28 was neg for growth. Will order picc, start iv vanc and ceftriaxone. Plan on 6 week course of empiric therapy, stop date 01/15/19. Weekly bmp, cbc, esr, and vanc trough. Will follow, thank you, d/w case supervisor and primary team. ID followup in 2 weeks in [place], can try to coordinate with ortho visits.
--- NOTE | 2018-12-05 11:06 | PCM.RX.CS ---
Consult Pharmacy has been consulted to manage selected antiobiotic: Vancomycin Type of Consult: New start Suspected Infection: Other Prior Doses of Antibiotics Received/Current Regimen: NONE Labs: Sodium 141 mmol/L (136-145) 12/05/18 05:00 Potassium 4.8 mmol/L (3.5-5.1) 12/05/18 05:00 Chloride 104 mmol/L (98-107) 12/05/18 05:00 Carbon Dioxide 30.0 mmol/L (21.0-32.0) 12/05/18 05:00 Anion Gap 7 (5-15) 12/05/18 05:00 BUN 27 mg/dL (7-18) H 12/05/18 05:00 Creatinine 0.95 mg/dL (0.55-1.02) 12/05/18 05:00 Est GFR (MDRD) Af Amer 74 mL/min (>60) 12/05/18 05:00 Est GFR (MDRD) Non-Af 61 mL/min (>60) 12/05/18 05:00 BUN/Creatinine Ratio 28.3 RATIO (10-20) H 12/05/18 05:00 Glucose 126 mg/dL (74-106) H 12/05/18 05:00 Microbiology: Microbiology 11/25/18 13:51 Swab (Method) Nasal Screen MRSA/MSSA - Final Weight used for dosin.4 kg Estimated Creatinine Clearance: 57 ML/MIN Goal Trough: 15-20 mcg/mL Pharmacy Plan for Drug Dosing: PLAN/RECOMMENDATIONS 1. Vancomycin loading dose 2000mg IV x1 12/05/18 @1100 2. Vancomycin 1000mg IV Q12hrs to start 12/05/18 @2300 3. Trough prior to 4th total dose per protocol 12/06/18 @2230 4. Pharmacy Service will continue to monitor and adjust dosing as required.
--- NOTE | 2018-12-05 11:45 | CASEMGMT ---
PRISCA TUCKER Face to Face with patient for initial transition planning/care coordination assessment. PRISCA TUCKER introduced self and role at [facility]. Patient lying in bed, alert and oriented. Patient willing to participate in assessment and is able to answer all questions appropriately. Care providers, pharmacy, and demographics verified. Patient wishes to discharge home with HHC and IV ATB. PRISCA TUCKER provided list of HHC and SNF and discussed potential cost of IV ATBs. Patient reviewing list of HHC. PRISCA TUCKER also provided list of infusion companies and patient would like [facility]. Patient states she has no further needs or concerns at this time. CM to follow for discharge planning needs that may arise. PCP: Waylon Specialists: Prim, vascular [facility] Prescription Benefit: [facility] Living Will/HPOA: yes, her assistant district attorney LNOK: daughter, son in law, who she states can assist with antibiotics patient is willing to learn herself. Living Arrangements: Patient lives alone Transportation: friends, family DME/HHC: Patient states she has cane, walker, nebulizer. No HHC or SNF in the past PRISCA TUCKER sent referral to [facility] and awaiting call back with financial information. Patient to review list of HHC. Disposition Plan: HHC with IV ATBs vs SNF. Nichole SIGALA, RN, CM
[2018-12-05] MEDS: oxyCODONE 5 MG Tablet PO (12:22)
--- NOTE | 2018-12-05 13:57 | CASEMGMT ---
PRISCA TUCKER in to talk with patient regarding HHC choices. Patient states she would like [facility]. PRISCA TUCKER called and sent referral to [facility] and awaiting call back. PRISCA TUCKER will continue to follow this patient and plan for a safe discharge.
--- NOTE | 2018-12-05 14:47 | CASEMGMT ---
RN CM received call from [facility] and they are able to accept the patient. RN CM updated [facility] with [facility] information. Still awaiting financial information. CM will continue to follow this patient and plan for a safe discharge.
--- NOTE | 2018-12-05 17:48 | PCA ---
burner technician in with pt putting midline in
--- NOTE | 2018-12-05 18:00 | RAD_ITS ---
STUDY: X-RAY CHEST REASON FOR EXAM: Female, 73 years old. PICC line placement TECHNIQUE: Single AP portable view of the chest. COMPARISON: None. FINDINGS: Left PICC has been placed with its tip just at the midline. No evidence of left pneumothorax The lungs are clear and expanded. There is no demonstrated pleural abnormality. Normal size heart. Normal mediastinum and jasvir. Normal visualized pulmonary arteries. Normal visualized aortic arch and descending thoracic aorta. Normal visualized thoracic spine. Normal visualized ribs, clavicles, and shoulders. There is no demonstrated abnormality of the visualized soft tissue structures of the upper abdomen. RAD/CXR for Line Placement IMPRESSION: Left PICC with tip in the midline. No evidence of pneumothorax. Lungs are clear. Electronically Signed: Luis Alberto Johansen DO at 18:57 EDT Tel , Service support ,
[2018-12-05] MEDS: Atorvastatin Calcium 80 MG Tablet PO (22:12)
[2018-12-05] MEDS: Vancomycin IV 1,000 MG/200 ML BAG 200 MG IV (22:13)
[2018-12-06] VITALS (8 sets, daily range): BP systolic 106–139; BP diastolic 55–76; PULSE 78–96; RESP 17–20; TEMP 36.7–37.3; O2SAT 87–95
[2018-12-06] MEDS: oxyCODONE 5 MG Tablet PO ×3 (03:17→21:18)
[2018-12-06] MEDS: Acetaminophen 500 MG Tablet 1000 MG PO ×3 (05:26→21:18)
[2018-12-06] MEDS: Rivaroxaban 10 MG Tablet PO (05:26)
--- NOTE | 2018-12-06 07:20 | PCM.PN.ORT ---
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) Subjective: The patient was sitting in bedside chair upon examination. Patient denies any chest pain, shortness of breath, dizziness, lightheadedness, nausea or vomiting, or calf pain. Pain is controlled on medications. No adverse overnight events. Patient is anxious to go home. Plan will be for patient to get IV antibiotics with home health care. She also states her daughter is a nurse that will be also helping her at home. Patient did require overnight nasal oxygen. She denies any shortness of breath or chest pain. She states she has a nebulizer at home. Objective: Vital signs stable and afebrile. Patient requiring 2 L of nasal O2 overnight Patient is able to plantarflex and dorsiflex actively. Sensation is intact to light touch to saphenous, sural, superficial and deep peroneal, and tibial distribution. Dressing is clean dry and intact. Hemovac drain in place: Output is trending down. There was 160 mL's removed. Hemovac drain was removed today with Steri-Strip placed. Patient tolerated the procedure very well. Oppressive dressing was placed Negative Homans bilaterally, negative signs and symptoms of DVT. - Physical Exam Vitals/I&O's: Vital Signs Temp Pulse Resp BP Pulse Ox 99.1 F 87 18 106/76 95 12/06/18 05:32 12/06/18 05:32 12/06/18 05:32 12/06/18 05:32 12/06/18 05:32 Oxygen Flow Rate (L/min) 2 Oxygen Delivery Method Nasal Cannula Weight: 83.461 kg Body Mass Index (BMI) 31.6 Intake and Output for Last 24 Hours 12/04/18 12/05/18 12/06/18 23:59 23:59 23:59 Intake Total 2822.08 / 3072.08 2918.92 / 2918.92 400 / 400 Output Total 140 / 410 995 / 995 1010 / 1010 Balance 2682.08 / 2662.08 1923.92 / 1923.92 -610 / -610 General: Alert, Oriented x3, Cooperative, No apparent distress Microbiology Past 72 Hours 12/04/18 Unknown Tissue - Knee Gram Stain - Final 12/04/18 Unknown Tissue - Knee Wound Culture - Preliminary No growth-Final to follow 12/04/18 Unknown Tissue - Knee Gram Stain - Final 12/04/18 Unknown Tissue - Knee Wound Culture - Preliminary No growth-Final to follow 12/04/18 Unknown Tissue - Knee Gram Stain - Final 12/04/18 Unknown Tissue - Knee Wound Culture - Preliminary No growth-Final to follow Current Medications Acetaminophen (Tylenol) 1,000 mg PO Q8 [facility] Last Admin: 12/06/18 05:26 Dose: 1,000 mg Documented by: Aspirin (Aspirin, Baby) 81 mg PO DAILY@0800 [facility] Last Admin: 12/05/18 08:59 Dose: 81 mg Documented by: Atorvastatin Calcium (Lipitor) 80 mg PO QHS [facility] Last Admin: 12/05/18 22:12 Dose: 80 mg Documented by: Ezetimibe (Zetia) 10 mg PO DAILY [facility] Last Admin: 12/05/18 09:10 Dose: 10 mg Documented by: Enteral Nutritional Formula (Ensure Surgery) 237 ml PO TIDCM [facility] Last Admin: 12/05/18 18:07 Dose: 237 ml Documented by: Famotidine (Pepcid) 20 mg PO DAILY [facility] Last Admin: 12/05/18 09:06 Dose: 20 mg Documented by: Ceftriaxone Sodium 2 gm/ (Sodium Chloride) 50 mls @ 100 mls/hr IV Q24 [facility] Last Infusion: 12/05/18 12:11 Dose: Infused Documented by: Vancomycin HCl (Vancomycin) 1,000 mg in 200 mls @ 200 mls/hr IV Q12H [facility] Last Infusion: 12/05/18 23:13 Dose: Infused Documented by: Vancomycin IV Pharmacy to Dose (1 ea/ Sodium Chloride) 500 mls @ 250 mls/hr IV PRN PRN; Protocol PRN Reason: Rx to Dose Labetalol HCl (Trandate) 200 mg PO BID [facility] Last Admin: 12/05/18 22:12 Dose: 200 mg Documented by: Lisinopril (Zestril) 20 mg PO DAILY [facility] Last Admin: 12/05/18 09:10 Dose: 20 mg Documented by: Meloxicam (Mobic) 7.5 mg PO BID [facility] Last Admin: 12/05/18 22:12 Dose: 7.5 mg Documented by: Mesalamine (Apriso) 0.75 gm PO BID [facility] Last Admin: 12/05/18 22:11 Dose: 0.75 gm Documented by: Morphine Sulfate () 2 - 4 mg IV Q2H PRN PRN PRN Reason: Pain Score 6-10/10 Last Admin: 12/05/18 20:15 Dose: 2 mg Documented by: Morphine Sulfate () 2 - 4 mg IV Q2H PRN PRN PRN Reason: Pain Score 6-10/10 Ondansetron HCl (Zofran) 4 mg IV Q8H PRN PRN PRN Reason: NAUSEA Last Admin: 12/05/18 12:26 Dose: 4 mg Documented by: Oxycodone HCl (Oxyir) 5 - 10 mg PO Q4H PRN PRN PRN Reason: Pain Score 4-10/10 Last Admin: 12/06/18 03:17 Dose: 10 mg Documented by: Pantoprazole Sodium (Protonix) 40 mg PO DAILY [facility] Last Admin: 12/05/18 09:04 Dose: 40 mg Documented by: Promethazine HCl (Phenergan) 12.5 mg IM Q6H PRN PRN; Protocol PRN Reason: NAUSEA/VOMITING Last Admin: 12/05/18 04:50 Dose: 12.5 mg Documented by: Rivaroxaban (Xarelto) 10 mg PO DAILY@0600 [facility] Last Admin: 12/06/18 05:26 Dose: 10 mg Documented by: Senna/Docusate Sodium (Senokot-S, Tonya-Colace) 2 tablet PO BID [facility] Last Admin: 12/05/18 22:13 Dose: 2 tablet Documented by: Sodium Chloride () 10 - 40 ml IV UD PRN PRN Reason: SALINE FLUSH Last Admin: 12/05/18 18:03 Dose: 10 ml Documented by: Medical Necessity - Tobacco Use Smoking Status: Former smoker Tobacco Use: Non-smoker Assessment/Plan All Active Problems 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 S/P explant left total knee arthroplasty with placement of antibiotic spacer POD #2 2. Continue Pain Medications: Tylenol and OxyIR 3. DVT Prophylaxis: Xarelto for 2 weeks postoperatively then will switch over to baby aspirin twice daily for an additional 2 weeks at 2-week postop visit 4. PT/OT: Toe-touch weightbearing with knee immobilizer on at all times with use of walker. 5. H & H: Lab work has been ordered but not drawn at this time 6. Reactive leukocytosis: Lab work has been ordered but not drawn at this time 7. Encouraged Incentive Spirometry 8. Continue postoperative medical management per medicine: Appreciate consult and input 9. Infectious disease consult: Appreciate input on appropriate management with antibiotics. Patient currently is on vancomycin and ceftriaxone per infectious disease. She will need to follow-up with infectious disease in 2 weeks. 10. Disposition: Case management involved for appropriate discharge and placement. Patient is going to proceed with home health care and states she has a daughter who is a nurse that can assist her at home. Plan will be for possible discharge home today if medically cleared. Plan would be to get her off of the oxygen and see how she does. If patient is medically stable we will plan for discharge later this evening once antibiotics have been given or appropriate plan has been established. Patient will follow-up per postop instructions. Prescriptions are attached to chart.
--- NOTE | 2018-12-06 07:31 | DCINST_ITS ---
Discharge Diet: No Restrictions Discharge Activity: May Not Drive May shower in (days): 1 - Turn dressing away from water Ice area for (Minutes): 20 - Every 1-2 hours while awake Weight Bearing Status: Toe touch weight bearing - With walker Elevate: Operative Extremity Additional Activity Instructions:: Wear elastic stockings for 2 weeks after your surgery. Call your doctor if your incision/area has: Continuous Slow Oozing, Sudden Increased Bleeding, Increased Pain/ Swelling, Increased Redness, Foul Smelling Discharge Call your doctor if you observe: Fever of 101 or Higher, Coldness, Increased Pain, Numbness or Tingling, Change in Color, Calf discomfort, Uncontrolled pain Remove Dressing in (days):: 3 - Okay to remove dressing on December 09, 2018 Additional Instructions: Follow orthopedic postop instructions Weightbearing restrictions: Patient will be toe-touch weightbearing with knee immobilizer with use of walker Continue with knee immobilizer at all times but can on loosen it while sitting to work on icing. Must be on when up walking. Allergies/Adverse Reactions: Allergies morphine Allergy (Verified 12/04/18 11:47) Other unable to talk Penicillins [PCN] Allergy (Verified 12/04/18 11:47) Rash Medications to take at Discharge Aspirin [Aspirin, Baby] 81 mg PO DAILY@0800 11/25/18 Esomeprazole Mag Trihydrate [Nexium] 40 mg PO DAILY 11/25/18 Ezetimibe [Zetia] 10 mg PO DAILY 11/25/18 Labetalol [Trandate (Beta Kim)] 200 mg PO BID 11/25/18 Lisinopril [Zestril] 20 mg PO DAILY 11/25/18 Mesalamine [Apriso] 0.75 gm PO BID 11/25/18 Rosuvastatin Calcium [Crestor] 40 mg PO DAILY 11/25/18 Ceftriaxone 2 gm IV Q24 40 Days #40 vial 12/05/18 Vancomycin/0.9 % Sod Chloride [Vanco 1.25 gm/250 ml-0.9% NaCl] 1.25 gm IV Q12H 40 Days #80 plast..bag 12/05/18 Acetaminophen [Tylenol] 1,000 mg PO Q8 #100 tab 12/06/18 Oxycodone [Oxyir] 5 - 10 mg PO Q4H PRN PRN 5 Days #60 tab 12/06/18 Rivaroxaban [Xarelto] 10 mg PO DAILY@0600 #12 tab 12/06/18 Senna/Docusate Sodium [Senokot-S] 2 tab PO BID #10 tab 12/06/18 The following prescriptions were given: Ceftriaxone 2 gm IV Q24 40 Days #40 vial Prescription Printed Oxycodone [Oxyir] 5 - 10 mg PO Q4H PRN PRN 5 Days #60 tab PRN Reason: Pain Score 4-10 Prescription Printed Senna/Docusate Sodium [Senokot-S] 2 tab PO BID #10 tab Prescription Printed Acetaminophen [Tylenol] 1,000 mg PO Q8 #100 tab Prescription Printed Vancomycin/0.9 % Sod Chloride [Vanco 1.25 gm/250 ml-0.9% NaCl] 1.25 gm IV Q12H 40 Days #80 plast..bag Prescription Printed Rivaroxaban [Xarelto] 10 mg PO DAILY@0600 #12 tab Prescription Printed Primary Care Physician: Amilcar Connors MD [Primary Care Provider] - Test Results: Test results from this visit will be discussed in further detail at your follow- up appointment, if applicable. Please Follow Up With: Ousmane Joy PA-C When: 12/18/18 @ 9:30 am Please Follow Up With: Amilcar Epperson MD When: schedule 2 week follow up with infectious disease
[2018-12-06] MEDS: Ensure Surgery 237 ML LIQUID PO ×2 (07:45→12:55)
[2018-12-06] MEDS: Aspirin 81 MG TAB.CHEW PO (07:48)
[2018-12-06 08:32] LABS: Absolute Neutrophil Count 6.8 X10^3/uL (2.0-7.7); Basophil# 0.03 X10^3/uL; Basophil% 0.3 % (0-1); Eosinophil# 0.05 X10^3/uL; Eosinophils% 0.5 % (0-5); Hematocrit 30.6 % (37-47); Hemoglobin 9.2 g/dL (12.0-15.0); Lymphocyte % 6.1 % (19-41); Mean Corp Hgb Conc 30.1 g/dL (32-36); Mean Platelet Vol. 10.7 fl (6.2-12.0); Monocyte# 2.31 X10^3/uL; Monocyte% 23.3 % (0-10); NRBC Flagged by Analyzer 0 % (0-5); Neutrophil % 68.6 % (47-70); POSITIVE DIFFERENTIAL YES; Platelet Count 132 K/mm3 (150-450); RBC Distribution Width CV 14.6 % (11.6-14.6); RBC Distribution Width SD 50.5 fl (35.1-43.9); Red Blood Count 3.29 M/mm3 (4.2-5.4); White Blood Count 9.9 K/mm3 (4.4-11.0)
[2018-12-06 09:04] LABS: Differential Indicated SCAN CRITERIA MET
[2018-12-06] MEDS: 0.9% Saline Lock 10 ML Syringe IV ×7 (09:12→20:37)
[2018-12-06] MEDS: Meloxicam 7.5 MG Tablet PO ×2 (09:15→21:18)
[2018-12-06] MEDS: MESALAMINE 0.375 GM CAP.ER.24H 0.75 GM PO ×2 (09:15→21:22)
[2018-12-06] MEDS: Famotidine 20 MG Tablet PO (09:16)
[2018-12-06] MEDS: Pantoprazole Sodium 40 MG Tablet PO (09:16)
[2018-12-06] MEDS: Senna/Docusate Sodium 1 Tablet 2 TABLET PO ×2 (09:17→21:18)
[2018-12-06] MEDS: Ezetimibe 10 MG Tablet PO (09:18)
[2018-12-06] MEDS: Labetalol 200 MG Tablet PO ×2 (09:18→21:18)
[2018-12-06] MEDS: Lisinopril 20 MG Tablet PO (09:18)
[2018-12-06] MEDS: Vancomycin IV 1,000 MG/200 ML BAG 200 MG IV ×2 (09:42→20:37)
[2018-12-06 10:14] LABS: Vancomycin, Trough Level 18.5 ug/mL (5.0-15.0)
--- NOTE | 2018-12-06 12:30 | CASEMGMT ---
This RN CM received message from Monica at [facility] regarding financial information. Patient to have cost of $383.60 per week till $3000 out of pocket met. RN CM in to updated patient regarding cost of antibiotic per week. Patient also updated that if she would like she could qualify for SNF and be covered at 100% for first 20 days. Patient adamant that she does not want to go to SNF. Patient also states that she should not have a cost because she has never had a cost in 15 years with [facility] for prescriptions. This RN CM reassured patient that [facility] called [facility] to run financial information. Patient states she receives her meds for [place], [place]. This RN CM called Monica at [facility] to confirm they spoke with [facility], Monica stated yes and they were on hold for 2 hours. RN CM updated the patient. Patient stated that she will call [facility] herself and get this straightened out. RN CM placed call to [facility] via number on patient's [facility] card. Number left for next bilingual sales representative to call. This RN CM also called [facility] regarding coverage for IV ATBs and if they dispense IV ATBs. [facility] pharmacy stated that they do not dispense IV ATBs and that would have to be done at local pharmacy and patient would have to cover 25% of cost. This RN CM received call back from [facility] bilingual sales representative Vincent that [facility] is primary insurance for prescription coverage and that they covered 75% and patient responsible for 25%. Patient is required to cover cost and submit claim to [facility] for coverage of 75% if not with their pharmacy. RN GARRETT given ref # [id number]. This RN CM called Monica at [facility] and updated regarding benefits. [facility] of IV ATBs and supplies at $383.60 is 100% cost. RN CM faxed PICC line information to [facility]. This RN CM updated by fellow CM that patient is agreeable to cover cost and to discharge home with IV ATBs and HHC. This RN CM updated the patient regarding coverage with [facility] and that she will need to submit cost to them for coverage reimbursement. Patient is agreeable to covering cost and proceeding with discharge. RN GARRETT updated by ID that IV Vanco script has changed. New Vanco script received as well as order for picc line dressing changes and flush orders. RN CM sent updated scripts to [facility].
--- NOTE | 2018-12-06 12:52 | PCM.PN.ID ---
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 No fever. - Physical Exam Vitals/I&O's: Vital Signs Temp Pulse Resp BP Pulse Ox 98.1 F 78 17 133/58 H 95 12/06/18 09:15 12/06/18 09:15 12/06/18 09:15 12/06/18 09:15 12/06/18 09:15 Oxygen Flow Rate (L/min) 2 Oxygen Delivery Method Nasal Cannula Weight: 83.461 kg Body Mass Index (BMI) 31.6 Intake and Output for Last 24 Hours 12/04/18 12/05/18 12/06/18 23:59 23:59 23:59 Intake Total 2822.08 / 3072.08 2918.92 / 2918.92 1250 / 1250 Output Total 140 / 410 995 / 995 1810 / 1810 Balance 2682.08 / 2662.08 1923.92 / 1923.92 -560 / -560 General: Alert, Cooperative, No apparent distress Lungs: Clear to auscultation, Normal air movement Cardiovascular: Regular rate, Regular Rhythm Abdomen: Soft, Non Tender, Non-Distended Skin: Incision - Leg resolved Microbiology Past 72 Hours 12/04/18 Unknown Tissue - Knee Gram Stain - Final 12/04/18 Unknown Tissue - Knee Wound Culture - Preliminary No growth-Final to follow 12/04/18 Unknown Tissue - Knee Gram Stain - Final 12/04/18 Unknown Tissue - Knee Wound Culture - Preliminary No growth-Final to follow 12/04/18 Unknown Tissue - Knee Gram Stain - Final 12/04/18 Unknown Tissue - Knee Wound Culture - Preliminary No growth-Final to follow Laboratory Results 12/06/18 08:20: WBC 9.9, RBC 3.29 L, Hgb 9.2 L, Hct 30.6 L, MCV 93.0, MCH 28.0, MCHC 30.1 L, RDW Std Deviation 50.5 H, RDW Coeff of Adriano 14.6, Plt Count 132 L, MPV 10.7, Immature Gran % (Auto) 1.200 H, Neut % (Auto) 68.6, Lymph % (Auto) 6.1 L, [place] % (Auto) 23.3 H, Eos % (Auto) 0.5, Baso % (Auto) 0.3, Absolute Neuts (auto) 6.8, Absolute Lymphs (auto) 0.60 L, Nucleated RBC % 0 12/06/18 08:20: Vancomycin Trough 18.5 H Current Medications Acetaminophen (Tylenol) 1,000 mg PO Q8 [facility] Last Admin: 12/06/18 05:26 Dose: 1,000 mg Documented by: Aspirin (Aspirin, Baby) 81 mg PO DAILY@0800 [facility] Last Admin: 12/06/18 07:48 Dose: 81 mg Documented by: Atorvastatin Calcium (Lipitor) 80 mg PO QHS [facility] Last Admin: 12/05/18 22:12 Dose: 80 mg Documented by: Ezetimibe (Zetia) 10 mg PO DAILY [facility] Last Admin: 12/06/18 09:18 Dose: 10 mg Documented by: Enteral Nutritional Formula (Ensure Surgery) 237 ml PO TIDCM [facility] Last Admin: 12/06/18 07:45 Dose: 237 ml Documented by: Famotidine (Pepcid) 20 mg PO DAILY [facility] Last Admin: 12/06/18 09:16 Dose: 20 mg Documented by: Ceftriaxone Sodium 2 gm/ (Sodium Chloride) 50 mls @ 100 mls/hr IV Q24 [facility] Last Infusion: 12/06/18 09:49 Dose: Infused Documented by: Vancomycin HCl (Vancomycin) 1,000 mg in 200 mls @ 200 mls/hr IV Q12H [facility] Last Infusion: 12/06/18 10:42 Dose: Infused Documented by: Vancomycin IV Pharmacy to Dose (1 ea/ Sodium Chloride) 500 mls @ 250 mls/hr IV PRN PRN; Protocol PRN Reason: Rx to Dose Labetalol HCl (Trandate) 200 mg PO BID [facility] Last Admin: 12/06/18 09:18 Dose: 200 mg Documented by: Lisinopril (Zestril) 20 mg PO DAILY [facility] Last Admin: 12/06/18 09:18 Dose: 20 mg Documented by: Meloxicam (Mobic) 7.5 mg PO BID [facility] Last Admin: 12/06/18 09:15 Dose: 7.5 mg Documented by: Mesalamine (Apriso) 0.75 gm PO BID [facility] Last Admin: 12/06/18 09:15 Dose: 0.75 gm Documented by: Morphine Sulfate () 2 - 4 mg IV Q2H PRN PRN PRN Reason: Pain Score 6-10/10 Last Admin: 12/05/18 20:15 Dose: 2 mg Documented by: Morphine Sulfate () 2 - 4 mg IV Q2H PRN PRN PRN Reason: Pain Score 6-10/10 Ondansetron HCl (Zofran) 4 mg IV Q8H PRN PRN PRN Reason: NAUSEA Last Admin: 12/05/18 12:26 Dose: 4 mg Documented by: Oxycodone HCl (Oxyir) 5 - 10 mg PO Q4H PRN PRN PRN Reason: Pain Score 4-10/10 Last Admin: 12/06/18 03:17 Dose: 10 mg Documented by: Pantoprazole Sodium (Protonix) 40 mg PO DAILY [facility] Last Admin: 12/06/18 09:16 Dose: 40 mg Documented by: Promethazine HCl (Phenergan) 12.5 mg IM Q6H PRN PRN; Protocol PRN Reason: NAUSEA/VOMITING Last Admin: 12/05/18 04:50 Dose: 12.5 mg Documented by: Rivaroxaban (Xarelto) 10 mg PO DAILY@0600 [facility] Last Admin: 12/06/18 05:26 Dose: 10 mg Documented by: Senna/Docusate Sodium (Senokot-S, Tonya-Colace) 2 tablet PO BID [facility] Last Admin: 12/06/18 09:17 Dose: 2 tablet Documented by: Sodium Chloride () 10 - 40 ml IV UD PRN PRN Reason: SALINE FLUSH Last Admin: 12/06/18 09:12 Dose: 10 ml Documented by: Medical Necessity - Tobacco Use Smoking Status: Former smoker Tobacco Use: Non-smoker Route of nutrition/ use of supplements: [] Nutritional Intake: [] IV Site: [] Hurst Catheter: [] - Assessment/Plan Antibiotics: [] Assessment/Plan: [] Active and Suspected Problems Joint infection (Suspected) 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 Gonsales. Surg cx pending; single gram stain showing GPC. Aspiration from 10/28 was neg for growth. On iv vanc and ceftriaxone. Plan on 6 week course of empiric therapy, stop date 01/15/19. Weekly bmp, cbc, esr, and vanc trough. Adjusted vanc dose for discharge. Requested micro lab hold surg cxs for 14 days. Will follow, d/w nurse outreach case manager. ID followup in 2 weeks in [place], can try to coordinate with ortho visits.
--- NOTE | 2018-12-06 13:46 | PCM.RX.CS ---
<Joseph Linton - Last Filed: 12/06/18 14:20> Consult Pharmacy has been consulted to manage selected antiobiotic: Vancomycin Type of Consult: Follow-up Suspected Infection: Other Prior Doses of Antibiotics Received/Current Regimen: Currently on 1000mg IV q12h Labs: Sodium 141 mmol/L (136-145) 12/05/18 05:00 Potassium 4.8 mmol/L (3.5-5.1) 12/05/18 05:00 Chloride 104 mmol/L (98-107) 12/05/18 05:00 Carbon Dioxide 30.0 mmol/L (21.0-32.0) 12/05/18 05:00 Anion Gap 7 (5-15) 12/05/18 05:00 BUN 27 mg/dL (7-18) H 12/05/18 05:00 Creatinine 0.95 mg/dL (0.55-1.02) 12/05/18 05:00 Est GFR (MDRD) Af Amer 74 mL/min (>60) 12/05/18 05:00 Est GFR (MDRD) Non-Af 61 mL/min (>60) 12/05/18 05:00 BUN/Creatinine Ratio 28.3 RATIO (10-20) H 12/05/18 05:00 Glucose 126 mg/dL (74-106) H 12/05/18 05:00 Vancomycin Trough 18.5 ug/mL (5.0-15.0) H 12/06/18 08:20 Microbiology: Microbiology 12/04/18 Unknown Tissue - Knee Gram Stain - Final 12/04/18 Unknown Tissue - Knee Wound Culture - Preliminary No growth-Final to follow 12/04/18 Unknown Tissue - Knee Gram Stain - Final 12/04/18 Unknown Tissue - Knee Wound Culture - Preliminary No growth-Final to follow 12/04/18 Unknown Tissue - Knee Gram Stain - Final 12/04/18 Unknown Tissue - Knee Wound Culture - Preliminary No growth-Final to follow 11/25/18 13:51 Swab (Method) Nasal Screen MRSA/MSSA - Final Weight used for dosin.4 kg Estimated Creatinine Clearance: 57 ml/min Goal Trough: 15-20 mcg/mL Pharmacy Plan for Drug Dosing: Vancomycin trough drawn before this morning's dose came back as 18.5 (drawn 10 hours after the previous dose). This trough was originally scheduled to be drawn before the 4th dose tonight but somehow was changed to this morning before the 3rd dose. It still came back within the goal range of 15-20 and may seem high after just 2 doses had been given but the 18.5 may be somewhat inflated since the 2 doses were 2000mg and 1000mg which were given just 10 hours apart and the trough was drawn at only 10 hours after the previous dose instead of the desired 12 hours. Since the patient is going home later today, we will not order another trough at this time but would recommend obtaining another one at least a couple days from now with home health since this trough today may not be the most accurate. Pharmacy Service will continue to monitor and adjust dosing as required. <Amilcar Granger - Last Filed: 12/06/18 21:10> Consult Labs: Sodium 141 mmol/L (136-145) 12/05/18 05:00 Potassium 4.8 mmol/L (3.5-5.1) 12/05/18 05:00 Chloride 104 mmol/L (98-107) 12/05/18 05:00 Carbon Dioxide 30.0 mmol/L (21.0-32.0) 12/05/18 05:00 Anion Gap 7 (5-15) 12/05/18 05:00 BUN 27 mg/dL (7-18) H 12/05/18 05:00 Creatinine 0.95 mg/dL (0.55-1.02) 12/05/18 05:00 Est GFR (MDRD) Af Amer 74 mL/min (>60) 12/05/18 05:00 Est GFR (MDRD) Non-Af 61 mL/min (>60) 12/05/18 05:00 BUN/Creatinine Ratio 28.3 RATIO (10-20) H 12/05/18 05:00 Glucose 126 mg/dL (74-106) H 12/05/18 05:00 Vancomycin Trough 18.5 ug/mL (5.0-15.0) H 12/06/18 08:20 Microbiology: Microbiology 12/04/18 Unknown Tissue - Knee Gram Stain - Final 12/04/18 Unknown Tissue - Knee Wound Culture - Preliminary No growth-Final to follow 12/04/18 Unknown Tissue - Knee Gram Stain - Final 12/04/18 Unknown Tissue - Knee Wound Culture - Preliminary No growth-Final to follow 12/04/18 Unknown Tissue - Knee Gram Stain - Final 12/04/18 Unknown Tissue - Knee Wound Culture - Preliminary No growth-Final to follow 11/25/18 13:51 Swab (Method) Nasal Screen MRSA/MSSA - Final Pharmacy Plan for Drug Dosing: Have ordered a vanco trough for 11.2.19 in AM before 0800 dose. Pharmacy Service will continue to monitor and adjust dosing as required. Follow-Up Labs: Trough Vancomycin - 11.2.19 @0730 before 0800 dose
[2018-12-06] MEDS: Morphine 2 MG/ML Syringe IV ×2 (13:58→18:02)
[2018-12-06] MEDS: Furosemide 20 MG/2 ML VIAL IV (15:20)
[2018-12-06] MEDS: Ondansetron 4 MG/2 ML Vial IV (15:25)
--- NOTE | 2018-12-06 16:49 | NURSING ---
spoke with Dr Gonsales regarding pt oxygenation. in monitoring patient, when she does deep breathing, she can reach up to 94%. however, she drops quickly to the 80s when she relaxed. Dr Gonsales requested that we leave her on room air until 5:30 and see if she is able to maintain. pt is not consistently maintaining O2 (79-90%) during this time frame. Dr Sam is notified.
--- NOTE | 2018-12-06 17:08 | CASEMGMT ---
PRISCA TUCKER notified that patient is not able to maintain oxygenation on room air and discharge has been postponed. RN GARRETT called [facility] and updated, they will still deliver medication today so available when patient discharges. PRISCA TUCKER updated [facility] regarding discharge being cancelled today. Nursing is to call and update [facility] with discharge time with start off care planned for 1999 day of discharge. [facility] P:[phone] F:[phone] PRISCA TUCKER updated the patient and she requested I call and updated friend Mikael, who is providing transportation. He updated this CM that chris called him and instructed him to refrigerate the antibiotics once delivered. 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
[2018-12-06] MEDS: proMETHazine 25 MG/ML Syringe 12.5 MG IM (19:38)
[2018-12-06] MEDS: Albuterol 2.5 MG/3 ML VIAL.NEB. INHALATION (20:24)
[2018-12-06] MEDS: Atorvastatin Calcium 80 MG Tablet PO (21:18)
[2018-12-07] VITALS (11 sets, daily range): BP systolic 139–151; BP diastolic 67–88; PULSE 83–106; RESP 16–21; TEMP 36.8–37.6; O2SAT 70–96
[2018-12-07] MEDS: Ondansetron 4 MG/2 ML Vial IV (02:01)
[2018-12-07] MEDS: 0.9% Saline Lock 10 ML Syringe IV ×6 (02:01→11:29)
[2018-12-07] MEDS: Acetaminophen 500 MG Tablet 1000 MG PO ×2 (05:25→18:48)
[2018-12-07] MEDS: Rivaroxaban 10 MG Tablet PO (05:25)
[2018-12-07 05:54] LABS: Hematocrit 30.7 % (37-47); Hemoglobin 9.2 g/dL (12.0-15.0); Mean Corpuscular Hgb 27.6 pg (27.0-32.0); Mean Corpuscular Volume 92.2 fL (81-99); Platelet Count 132 K/mm3 (150-450); RBC Distribution Width CV 14.7 % (11.6-14.6); Red Blood Count 3.33 M/mm3 (4.2-5.4); White Blood Count 9.3 K/mm3 (4.4-11.0)
[2018-12-07] MEDS: Albuterol 2.5 MG/3 ML VIAL.NEB. INHALATION (06:43)
[2018-12-07] MEDS: Vancomycin IV 1,000 MG/200 ML BAG 200 MG IV (07:58)
[2018-12-07] MEDS: Meloxicam 7.5 MG Tablet PO ×2 (08:00→21:18)
[2018-12-07] MEDS: Lisinopril 20 MG Tablet PO (08:01)
[2018-12-07] MEDS: Senna/Docusate Sodium 1 Tablet 2 TABLET PO ×2 (08:01→21:18)
[2018-12-07] MEDS: Labetalol 200 MG Tablet PO ×2 (08:01→21:18)
[2018-12-07] MEDS: Aspirin 81 MG TAB.CHEW PO (08:02)
[2018-12-07] MEDS: Famotidine 20 MG Tablet PO (08:02)
[2018-12-07] MEDS: Pantoprazole Sodium 40 MG Tablet PO (08:03)
[2018-12-07] MEDS: Ezetimibe 10 MG Tablet PO (08:05)
[2018-12-07 08:15] LABS: Vancomycin, Trough Level 22.6 ug/mL (5.0-15.0)
--- NOTE | 2018-12-07 08:16 | NURSING ---
Dr. Sam and primary RN at nurses' station discussing patient's anxiety this AM. Notified by Ramos that patient was spinning like a top and repeating same things over regarding left lateral knee pain and not sure about future surgeries and that she needs to contact her transactional attorney. When questioned by Ramos- pt restates- you know my power of transactional attorney. Dr. Wright asked this RN to page Dr. Gonsales to notify him of patient's statements this AM. Same completed at this time. Dr. Gonsales states he is in building and will see pt shortly.
[2018-12-07] MEDS: MESALAMINE 0.375 GM CAP.ER.24H 0.75 GM PO ×2 (08:17→21:21)
--- NOTE | 2018-12-07 08:22 | NURSING ---
Pt c/o left lateral pain, states wants to see the Dr. Nurse has been in room for 45 min. explaining POC, and the need to have oxygen at home. States she understands and a few minutes later she states I don't understand...like what is happening. Nurse attempted to explain that her o2 was at 77% on ra, and she said, I understand, but you don't know what has been happening like a year ago. Nurse reminded pt she has COPD, and her O2 dropped yesterday and required o2 and it was low when respiratory checked it this am, and it was low this am when this nurse checked. Pt asked can I choose where I get o2, and stated she wanted [facility], nurse said she it will relay this on to socially worker. (Left message on voice)/ Pt continued to talk in circles, that she understands, and a few minutes later states she understands.
--- NOTE | 2018-12-07 08:35 | PCM.PN.ORT ---
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 She is somewhat frantic with some anxiety, [facility] is been [facility] than anticipated. She was again tried on room air this morning and her saturations went down to 77%. She is very stable on 1 to 2 L of oxygen nasal cannula. At this time she is been arranged for home oxygen. She notes the pain in her knee is controlled, but not completely gone. She is stable in the knee immobilizer. No chest pain or calf pain. Objective: Postoperative x-rays show stable well-placed left knee antibiotic spacer - Physical Exam Vitals/I&O's: Vital Signs Temp Pulse Resp BP Pulse Ox 99.6 F H 106 H 18 139/88 H 77 12/07/18 07:36 12/07/18 07:36 12/07/18 07:36 12/07/18 07:36 12/07/18 07:45 Oxygen Flow Rate (L/min) 2 Oxygen Delivery Method Room Air Weight: 184 lb Body Mass Index (BMI) 31.6 Intake and Output for Last 24 Hours 12/05/18 12/06/18 12/07/18 23:59 23:59 23:59 Intake Total 2918.92 / 2918.92 1700 / 2100 550 / 550 Output Total 995 / 995 2960 / 2960 300 / 300 Balance 1923.92 / 1923.92 -1260 / -860 250 / 250 General: Alert, Oriented x3, Cooperative, - - Speech is somewhat frantic HEENT: Atraumatic Extremities: - - Left lower extremity: Knee immobilizer in place, dressing is clean dry and intact Sensations intact to light touch saphenous, sural, superficial peroneal, deep peroneal, and tibial distributions Motors intact EHL, DF, PF calves are soft and supple Microbiology Past 72 Hours 12/04/18 Unknown Tissue - Knee Gram Stain - Final 12/04/18 Unknown Tissue - Knee Wound Culture - Preliminary No growth-Final to follow 12/04/18 Unknown Tissue - Knee Gram Stain - Final 12/04/18 Unknown Tissue - Knee Wound Culture - Preliminary No growth-Final to follow 12/04/18 Unknown Tissue - Knee Gram Stain - Final 12/04/18 Unknown Tissue - Knee Wound Culture - Preliminary No growth-Final to follow Laboratory Results 12/06/18 08:20: WBC 9.9, RBC 3.29 L, Hgb 9.2 L, Hct 30.6 L, MCV 93.0, MCH 28.0, MCHC 30.1 L, RDW Std Deviation 50.5 H, RDW Coeff of Adriano 14.6, Plt Count 132 L, MPV 10.7, Immature Gran % (Auto) 1.200 H, Neut % (Auto) 68.6, Lymph % (Auto) 6.1 L, [place] % (Auto) 23.3 H, Eos % (Auto) 0.5, Baso % (Auto) 0.3, Absolute Neuts (auto) 6.8, Absolute Lymphs (auto) 0.60 L, Nucleated RBC % 0 12/06/18 08:20: Vancomycin Trough 18.5 H 12/07/18 05:45: WBC 9.3, RBC 3.33 L, Hgb 9.2 L, Hct 30.7 L, MCV 92.2, MCH 27.6, MCHC 30.0 L, RDW Std Deviation 50.0 H, RDW Coeff of Adriano 14.7 H, Plt Count 132 L, MPV 11.0 12/07/18 07:20: Vancomycin Trough 22.6 H Current Medications Acetaminophen (Tylenol) 1,000 mg PO Q8 [facility] Last Admin: 12/07/18 05:25 Dose: 1,000 mg Documented by: Albuterol Sulfate (Ventolin Aerosols) 2.5 mg INHALATION Q6H.RT [facility] Last Admin: 12/07/18 06:43 Dose: 2.5 mg Documented by: Aspirin (Aspirin, Baby) 81 mg PO DAILY@0800 [facility] Last Admin: 12/07/18 08:02 Dose: 81 mg Documented by: Atorvastatin Calcium (Lipitor) 80 mg PO QHS [facility] Last Admin: 12/06/18 21:18 Dose: 80 mg Documented by: Ezetimibe (Zetia) 10 mg PO DAILY [facility] Last Admin: 12/07/18 08:05 Dose: 10 mg Documented by: Enteral Nutritional Formula (Ensure Surgery) 237 ml PO TIDCM [facility] Last Admin: 12/07/18 07:57 Dose: Not Given Documented by: Famotidine (Pepcid) 20 mg PO DAILY [facility] Last Admin: 12/07/18 08:02 Dose: 20 mg Documented by: Ceftriaxone Sodium 2 gm/ (Sodium Chloride) 50 mls @ 100 mls/hr IV Q24 [facility] Last Infusion: 12/06/18 09:49 Dose: Infused Documented by: Vancomycin IV Pharmacy to Dose (1 ea/ Sodium Chloride) 500 mls @ 250 mls/hr IV PRN PRN; Protocol PRN Reason: Rx to Dose Vancomycin HCl (Vancomycin) 1,000 mg in 200 mls @ 200 mls/hr IV Q12H [facility] Last Admin: 12/07/18 07:58 Dose: 200 mls/hr Documented by: Labetalol HCl (Trandate) 200 mg PO BID [facility] Last Admin: 12/07/18 08:01 Dose: 200 mg Documented by: Lisinopril (Zestril) 20 mg PO DAILY [facility] Last Admin: 12/07/18 08:01 Dose: 20 mg Documented by: Meloxicam (Mobic) 7.5 mg PO BID [facility] Last Admin: 12/07/18 08:00 Dose: 7.5 mg Documented by: Mesalamine (Apriso) 0.75 gm PO BID [facility] Last Admin: 12/07/18 08:17 Dose: 0.75 gm Documented by: Morphine Sulfate () 2 - 4 mg IV Q2H PRN PRN PRN Reason: Pain Score 6-10/10 Last Admin: 12/06/18 18:02 Dose: 2 mg Documented by: Morphine Sulfate () 2 - 4 mg IV Q2H PRN PRN PRN Reason: Pain Score 6-10/10 Ondansetron HCl (Zofran) 4 mg IV Q8H PRN PRN PRN Reason: NAUSEA Last Admin: 12/07/18 02:01 Dose: 4 mg Documented by: Oxycodone HCl (Oxyir) 5 - 10 mg PO Q4H PRN PRN PRN Reason: Pain Score 4-10/10 Last Admin: 12/06/18 21:18 Dose: 10 mg Documented by: Pantoprazole Sodium (Protonix) 40 mg PO DAILY [facility] Last Admin: 12/07/18 08:03 Dose: 40 mg Documented by: Promethazine HCl (Phenergan) 12.5 mg IM Q6H PRN PRN; Protocol PRN Reason: NAUSEA/VOMITING Last Admin: 12/06/18 19:38 Dose: 12.5 mg Documented by: Rivaroxaban (Xarelto) 10 mg PO DAILY@0600 [facility] Last Admin: 12/07/18 05:25 Dose: 10 mg Documented by: Senna/Docusate Sodium (Senokot-S, Tonya-Colace) 2 tablet PO BID [facility] Last Admin: 12/07/18 08:01 Dose: 2 tablet Documented by: Sodium Chloride () 10 - 40 ml IV UD PRN PRN Reason: SALINE FLUSH Last Admin: 12/07/18 07:58 Dose: 10 ml Documented by: Medical Necessity - Tobacco Use Smoking Status: Former smoker Tobacco Use: Non-smoker Assessment/Plan All Active Problems 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 S/P explant left total knee arthroplasty with placement of antibiotic spacer POD #3 2. Continue Pain Medications: Tylenol and OxyIR 3. DVT Prophylaxis: Xarelto for 2 weeks postoperatively then will switch over to baby aspirin twice daily for an additional 2 weeks at 2-week postop visit 4. PT/OT: Toe-touch weightbearing with knee immobilizer on at all times with use of walker. 5. H & H: Hemoglobin is 9.2 and stable today. 6. Reactive leukocytosis: White blood cell count is normalized this morning. 7. Encouraged Incentive Spirometry 8. Continue postoperative medical management per medicine: At this time patient is failed to be able to oxygenate appropriately when on room air. Going to set the patient up for home oxygen. Patient has been instructed to follow-up with her primary care doctor this week for management of her oxygen as an outpatient. 9. Infectious disease consult: Appreciate input on appropriate management with antibiotics. Patient currently is on vancomycin and ceftriaxone per infectious disease. She will need to follow-up with infectious disease in 2 weeks. Vancomycin trough this morning is 22.5 we will continue to follow. We will arrange for home health care to hold tonight's dose as this morning's dose has been infused. I will give an order to draw the trough in the morning prior to her morning dose and call me with results. I discussed this with the pharmacist this morning. 10. Disposition: Case management involved for appropriate discharge and placement. Patient is going to proceed with home health care and states she has a daughter who is a nurse that can assist her at home. Plan will be for discharge home today with home oxygen. Patient will need to follow-up next week with her primary care physician for management of the home oxygen. Infectious disease will be involved in managing her vancomycin levels as well. [facility] Office:
--- NOTE | 2018-12-07 08:43 | PCM.PROGNOTE ---
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 Patient seen and examined. No acute events overnight. Patient was discharged yesterday but her pulse ox was low and it was so difficult to get it up. Patient denies any shortness of breath. Today, again she denied any shortness of breath. She did mention that he had a history of COPD and she was on oxygen at one point of time few years ago. She is more concerned about the left knee pain and surgery that was done. She has been afebrile, heart rate has been around 100, blood pressure stable, pulse ox goes down to 77% on room air and she does not look dyspneic or tachypneic and no complaint of shortness of breath. - Physical Exam Vitals/I&O's: Vital Signs Temp Pulse Resp BP Pulse Ox 99.6 F H 106 H 18 139/88 H 77 12/07/18 07:36 12/07/18 07:36 12/07/18 07:36 12/07/18 07:36 12/07/18 07:45 Oxygen Flow Rate (L/min) 2 Oxygen Delivery Method Room Air Weight: 184 lb Body Mass Index (BMI) 31.6 Intake and Output for Last 24 Hours 12/05/18 12/06/18 12/07/18 23:59 23:59 23:59 Intake Total 2918.92 / 2918.92 1700 / 2100 550 / 550 Output Total 995 / 995 2960 / 2960 300 / 300 Balance 1923.92 / 1923.92 -1260 / -860 250 / 250 General: Alert, Oriented x3, Cooperative, No apparent distress HEENT: Atraumatic, PERRLA, EOMI, Normocephalic Oral: Moist Mucosa, No Gingival or Mucosal Lesions/ Ulcerations Neck: Supple, No JVD, Negative Carotid Bruits, Trachea Midline, Thyroid Normal Size and Texture Lungs: Clear to auscultation, Normal air movement, No rhonchi, No wheeze, No rales, Diminished Cardiovascular: Regular rate, Regular Rhythm, Normal S1, Normal S2, PMI Normal Abdomen: Bowel Sounds Present, Soft, Non Tender, Non-Distended, No Hepato-splenomegaly Extremities: No clubbing, No cyanosis, No edema Skin: No rashes, No breakdown Lymphatic: No Cervical, Supraclavicular, or Inguinal Adenopathy Neurological: Cranial nerves II-XII grossly intact, Neuro grossly intact Psych/Mental Status: Normal Affect, Appropriate, Alert and oriented to time, place, person, mood and affect Microbiology Past 72 Hours 12/04/18 Unknown Tissue - Knee Gram Stain - Final 12/04/18 Unknown Tissue - Knee Wound Culture - Preliminary No growth-Final to follow 12/04/18 Unknown Tissue - Knee Gram Stain - Final 12/04/18 Unknown Tissue - Knee Wound Culture - Preliminary No growth-Final to follow 12/04/18 Unknown Tissue - Knee Gram Stain - Final 12/04/18 Unknown Tissue - Knee Wound Culture - Preliminary No growth-Final to follow Laboratory Results 12/06/18 08:20: WBC 9.9, RBC 3.29 L, Hgb 9.2 L, Hct 30.6 L, MCV 93.0, MCH 28.0, MCHC 30.1 L, RDW Std Deviation 50.5 H, RDW Coeff of Adriano 14.6, Plt Count 132 L, MPV 10.7, Immature Gran % (Auto) 1.200 H, Neut % (Auto) 68.6, Lymph % (Auto) 6.1 L, [place] % (Auto) 23.3 H, Eos % (Auto) 0.5, Baso % (Auto) 0.3, Absolute Neuts (auto) 6.8, Absolute Lymphs (auto) 0.60 L, Nucleated RBC % 0 12/06/18 08:20: Vancomycin Trough 18.5 H 12/07/18 05:45: WBC 9.3, RBC 3.33 L, Hgb 9.2 L, Hct 30.7 L, MCV 92.2, MCH 27.6, MCHC 30.0 L, RDW Std Deviation 50.0 H, RDW Coeff of Adriano 14.7 H, Plt Count 132 L, MPV 11.0 12/07/18 07:20: Vancomycin Trough 22.6 H Current Medications Acetaminophen (Tylenol) 1,000 mg PO Q8 SACHIN Last Admin: 12/07/18 05:25 Dose: 1,000 mg Documented by: Albuterol Sulfate (Ventolin Aerosols) 2.5 mg INHALATION Q6H.RT [facility]ACHIN Last Admin: 12/07/18 06:43 Dose: 2.5 mg Documented by: Aspirin (Aspirin, Baby) 81 mg PO DAILY@0800 [facility] Last Admin: 12/07/18 08:02 Dose: 81 mg Documented by: Atorvastatin Calcium (Lipitor) 80 mg PO QHS [facility] Last Admin: 12/06/18 21:18 Dose: 80 mg Documented by: Ezetimibe (Zetia) 10 mg PO DAILY [facility] Last Admin: 12/07/18 08:05 Dose: 10 mg Documented by: Enteral Nutritional Formula (Ensure Surgery) 237 ml PO TIDCM [facility] Last Admin: 12/07/18 07:57 Dose: Not Given Documented by: Famotidine (Pepcid) 20 mg PO DAILY [facility] Last Admin: 12/07/18 08:02 Dose: 20 mg Documented by: Ceftriaxone Sodium 2 gm/ (Sodium Chloride) 50 mls @ 100 mls/hr IV Q24 [facility] Last Infusion: 12/06/18 09:49 Dose: Infused Documented by: Vancomycin IV Pharmacy to Dose (1 ea/ Sodium Chloride) 500 mls @ 250 mls/hr IV PRN PRN; Protocol PRN Reason: Rx to Dose Vancomycin HCl (Vancomycin) 1,000 mg in 200 mls @ 200 mls/hr IV Q12H [facility] Last Admin: 12/07/18 07:58 Dose: 200 mls/hr Documented by: Labetalol HCl (Trandate) 200 mg PO BID [facility] Last Admin: 12/07/18 08:01 Dose: 200 mg Documented by: Lisinopril (Zestril) 20 mg PO DAILY [facility] Last Admin: 12/07/18 08:01 Dose: 20 mg Documented by: Meloxicam (Mobic) 7.5 mg PO BID [facility] Last Admin: 12/07/18 08:00 Dose: 7.5 mg Documented by: Mesalamine (Apriso) 0.75 gm PO BID [facility] Last Admin: 12/07/18 08:17 Dose: 0.75 gm Documented by: Morphine Sulfate () 2 - 4 mg IV Q2H PRN PRN PRN Reason: Pain Score 6-10/10 Last Admin: 12/06/18 18:02 Dose: 2 mg Documented by: Morphine Sulfate () 2 - 4 mg IV Q2H PRN PRN PRN Reason: Pain Score 6-10/10 Ondansetron HCl (Zofran) 4 mg IV Q8H PRN PRN PRN Reason: NAUSEA Last Admin: 12/07/18 02:01 Dose: 4 mg Documented by: Oxycodone HCl (Oxyir) 5 - 10 mg PO Q4H PRN PRN PRN Reason: Pain Score 4-10/10 Last Admin: 12/06/18 21:18 Dose: 10 mg Documented by: Pantoprazole Sodium (Protonix) 40 mg PO DAILY [facility] Last Admin: 12/07/18 08:03 Dose: 40 mg Documented by: Promethazine HCl (Phenergan) 12.5 mg IM Q6H PRN PRN; Protocol PRN Reason: NAUSEA/VOMITING Last Admin: 12/06/18 19:38 Dose: 12.5 mg Documented by: Rivaroxaban (Xarelto) 10 mg PO DAILY@0600 [facility] Last Admin: 12/07/18 05:25 Dose: 10 mg Documented by: Senna/Docusate Sodium (Senokot-S, Tonya-Colace) 2 tablet PO BID [facility] Last Admin: 12/07/18 08:01 Dose: 2 tablet Documented by: Sodium Chloride () 10 - 40 ml IV UD PRN PRN Reason: SALINE FLUSH Last Admin: 12/07/18 07:58 Dose: 10 ml Documented by: Medical Necessity - Tobacco Use Smoking Status: Former smoker Tobacco Use: Non-smoker Assessment/Plan All Active Problems 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 Her postoperative course complicated by hypoxia. #1 status post removal of left total knee replacement/placement of back spacer/placement of nonbiodegradable antibiotic delivery system: This was done for periprosthetic left knee infection, postoperative day 3. She is on IV Rocephin and vancomycin. She is on IV morphine and OxyIR PRN for pain. Orthopedic surgery is on the case. Infectious disease consulted, recommended to discharge patient on IV Rocephin and vancomycin. Plan was to discharge patient yesterday but she was kept overnight because of hypoxia. #2 hypoxia: Without shortness of breath, patient is very stable and comfortable. She has been slightly tachycardic. Pulse ox has been down to 77% on room air at rest and patient was very stable and no complaints. She did mention that she had a history of COPD and she was on oxygen at one point of time years ago but she was taken off because she quit smoking and she feels better. She mentioned that she does have inhalers at home as well as nebulizer. She is on albuterol [id number]. Plan: Patient will need home oxygen, will check d-dimer and if it is positive, we need to do CTA chest to rule out PE. #2 hypertension: Blood pressure stable, continue lisinopril and labetalol. #3 peripheral vascular disease: Stable, continue aspirin and statins. #4 hyperlipidemia: Continue statins. #5 GERD: Stable, continue Protonix. #6 colitis: Stable, continue mesalamine. She was started on this almost 1 year ago after diagnosis of colitis, she is not sure what type of colitis. I mentioned ulcerative colitis and Crohn's disease to the patient and she said that she told that she has different form of colitis. She denies any diarrhea or bloody stool. #7 DVT prophylaxis: Continue Xarelto. This note was generated with [employer] dictation software. It may contain incorrect words, spelling, and punctuation that were not noted in checking the note before signing. Code Visit Inpatient E&M: 93850 Subs Hosp L2
--- NOTE | 2018-12-07 08:43 | PCM.RX.CS ---
Consult Pharmacy has been consulted to manage selected antiobiotic: Vancomycin Type of Consult: Follow-up Suspected Infection: Other Prior Doses of Antibiotics Received/Current Regimen: Vancomycin IV 1000mg 12/06 @ 2037 and 0942 Labs: Sodium 141 mmol/L (136-145) 12/05/18 05:00 Potassium 4.8 mmol/L (3.5-5.1) 12/05/18 05:00 Chloride 104 mmol/L (98-107) 12/05/18 05:00 Carbon Dioxide 30.0 mmol/L (21.0-32.0) 12/05/18 05:00 Anion Gap 7 (5-15) 12/05/18 05:00 BUN 27 mg/dL (7-18) H 12/05/18 05:00 Creatinine 0.95 mg/dL (0.55-1.02) 12/05/18 05:00 Est GFR (MDRD) Af Amer 74 mL/min (>60) 12/05/18 05:00 Est GFR (MDRD) Non-Af 61 mL/min (>60) 12/05/18 05:00 BUN/Creatinine Ratio 28.3 RATIO (10-20) H 12/05/18 05:00 Glucose 126 mg/dL (74-106) H 12/05/18 05:00 Vancomycin Trough 22.6 ug/mL (5.0-15.0) H 12/07/18 07:20 Microbiology: Microbiology 12/04/18 Unknown Tissue - Knee Gram Stain - Final 12/04/18 Unknown Tissue - Knee Wound Culture - Preliminary No growth-Final to follow 12/04/18 Unknown Tissue - Knee Gram Stain - Final 12/04/18 Unknown Tissue - Knee Wound Culture - Preliminary No growth-Final to follow 12/04/18 Unknown Tissue - Knee Gram Stain - Final 12/04/18 Unknown Tissue - Knee Wound Culture - Preliminary No growth-Final to follow 11/25/18 13:51 Swab (Method) Nasal Screen MRSA/MSSA - Final Weight used for dosin kg Estimated Creatinine Clearance: 46.9 Goal Trough: 15-20 mcg/mL Pharmacy Plan for Drug Dosin. 11 hour trough 12/07 @ 0720 came back slightly elevated above goal of 15-20 mg/dL at 22.6 mg/dL. Last SCr from 12/05 so was not able to assess for kidney injury. 2. Will D/C current order of 1000mg Q12H. Bag was already hung but nurse stopped after roughly 1/2 of the bag infused. 3. Patient is going home today. Spoke with Dr. Gonsales and suggested to hold tonaj's dose and get a trough in the morning before her 0800 dose. Will not schedule another trough here since patient will be leaving. 4. Dr. Gonsales will call us tomorrow with the result of 12/08 0800 trough from home health to manage until Dr. Epperson is able to look at the trough on Sunday. Pharmacy Service will continue to monitor and adjust dosing as required.
--- NOTE | 2018-12-07 08:47 | DCINST_ITS ---
Discharge Diet: No Restrictions Discharge Activity: May Not Drive May shower in (days): 1 - Turn dressing away from water Ice area for (Minutes): 20 - Every 1-2 hours while awake Weight Bearing Status: Toe touch weight bearing - With walker Elevate: Operative Extremity Additional Activity Instructions:: Wear elastic stockings for 2 weeks after your surgery. Call your doctor if your incision/area has: Continuous Slow Oozing, Sudden Increased Bleeding, Increased Pain/ Swelling, Increased Redness, Foul Smelling Discharge Call your doctor if you observe: Fever of 101 or Higher, Coldness, Increased Pain, Numbness or Tingling, Change in Color, Calf discomfort, Uncontrolled pain Change Dressing in (Days):: 1 - and daily as needed. Remove Dressing in (days):: 3 - Okay to remove dressing on December 09, 2018 Additional Instructions: Follow orthopedic postop instructions Weightbearing restrictions: Patient will be toe-touch weightbearing with knee immobilizer with use of walker Continue with knee immobilizer at all times but can on loosen it while sitting to work on icing. Must be on when up walking. Allergies/Adverse Reactions: Allergies morphine Allergy (Verified 12/04/18 11:47) Other unable to talk Penicillins [PCN] Allergy (Verified 12/04/18 11:47) Rash Medications to take at Discharge Aspirin [Aspirin, Baby] 81 mg PO DAILY@0800 11/25/18 Esomeprazole Mag Trihydrate [Nexium] 40 mg PO DAILY 11/25/18 Ezetimibe [Zetia] 10 mg PO DAILY 11/25/18 Labetalol [Trandate (Beta Kim)] 200 mg PO BID 11/25/18 Lisinopril [Zestril] 20 mg PO DAILY 11/25/18 Mesalamine [Apriso] 0.75 gm PO BID 11/25/18 Rosuvastatin Calcium [Crestor] 40 mg PO DAILY 11/25/18 Ceftriaxone 2 gm IV Q24 40 Days #40 vial 12/05/18 Acetaminophen [Tylenol] 1,000 mg PO Q8 #100 tab 12/06/18 Oxycodone [Oxyir] 5 - 10 mg PO Q4H PRN PRN 5 Days #60 tab 12/06/18 Rivaroxaban [Xarelto] 10 mg PO DAILY@0600 #12 tab 12/06/18 Senna/Docusate Sodium [Senokot-S] 2 tab PO BID #10 tab 12/06/18 Vancomycin IV [Vancomycin] 1,000 mg IV Q12H 40 Days #80 bag 12/06/18 The following prescriptions were given: Ceftriaxone 2 gm IV Q24 40 Days #40 vial Prescription Printed Oxycodone [Oxyir] 5 - 10 mg PO Q4H PRN PRN 5 Days #60 tab PRN Reason: Pain Score 4-1010 Prescription Printed Senna/Docusate Sodium [Senokot-S] 2 tab PO BID #10 tab Prescription Printed Acetaminophen [Tylenol] 1,000 mg PO Q8 #100 tab Prescription Printed Vancomycin IV [Vancomycin] 1,000 mg IV Q12H 40 Days #80 bag Prescription Printed Rivaroxaban [Xarelto] 10 mg PO DAILY@0600 #12 tab Prescription Printed Orders to be completed after discharge: Basic Metabolic Profile (BMP) Time Frame: 1 Day, Facility: [facility], Location: Laboratory Vancomycin, Trough Level Time Frame: 1 Day, Facility: [facility], Location: Laboratory Primary Care Physician: Amilcar Connors MD [Primary Care Provider] - Please follow up with your Primary Care Physician in: this week for oxygen management Test Results: Test results from this visit will be discussed in further detail at your follow- up appointment, if applicable. Please Follow Up With: Ousmane Joy PA-C When: 12/18/18 @ 9:30 am Please Follow Up With: Amilcar Epperson MD When: schedule 2 week follow up with infectious disease Proposed Discharge Date: 12/07/18
--- NOTE | 2018-12-07 08:55 | NURSING ---
Jenna the pharmacist called and said to stop the vancomycin now, because the trough was increasing. Vancomycin stopped.
--- NOTE | 2018-12-07 08:56 | DS.PCM_ITS ---
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 She was taken to the operating room intraoperative pathology was consistent with acute inflammation and infection. At this point patient met criteria for infection. Knee replacement was removed and antibiotic spacer was placed. Patient did well intraoperatively. She did well postoperatively however did have decreased oxygenation. She was given Lasix to decrease fluid overload. She continued to require oxygen. She was set up for home oxygen. Infectious disease evaluated the patient and placed her on vancomycin ceftriaxone for broad-spectrum coverage. PICC line was placed. Patient was eventually ready for discharge. She is touchdown weightbearing with her knee immobilizer on at this time. She is instructed to follow-up with her PCP for management of the oxygen. Her vancomycin trough was elevated this morning. She did receive her morning dose of vancomycin. We will call this evening's dose and recheck vancomycin trough tomorrow. We will also check BMP. Results to be called to myself and faxed to Dr. Epperson for definitive management. 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) - Physical Exam Vitals/I&O's: Vital Signs Temp Pulse Resp BP Pulse Ox 99.6 F H 106 H 18 139/88 H 77 12/07/18 07:36 12/07/18 07:36 12/07/18 07:36 12/07/18 07:36 12/07/18 07:45 Oxygen Flow Rate (L/min) 2 Oxygen Delivery Method Room Air Weight: 184 lb Body Mass Index (BMI) 31.6 Intake and Output for Last 24 Hours 12/05/18 12/06/18 12/07/18 23:59 23:59 23:59 Intake Total 2918.92 / 2918.92 1700 / 2100 693 / 693 Output Total 995 / 995 2960 / 2960 300 / 300 Balance 1923.92 / 1923.92 -1260 / -860 393 / 393 Microbiology Past 72 Hours 12/04/18 Unknown Tissue - Knee Gram Stain - Final 12/04/18 Unknown Tissue - Knee Wound Culture - Preliminary No growth-Final to follow 12/04/18 Unknown Tissue - Knee Gram Stain - Final 12/04/18 Unknown Tissue - Knee Wound Culture - Preliminary No growth-Final to follow 12/04/18 Unknown Tissue - Knee Gram Stain - Final 12/04/18 Unknown Tissue - Knee Wound Culture - Preliminary No growth-Final to follow Laboratory Results 12/06/18 08:20: WBC 9.9, RBC 3.29 L, Hgb 9.2 L, Hct 30.6 L, MCV 93.0, MCH 28.0, MCHC 30.1 L, RDW Std Deviation 50.5 H, RDW Coeff of Adriano 14.6, Plt Count 132 L, MPV 10.7, Immature Gran % (Auto) 1.200 H, Neut % (Auto) 68.6, Lymph % (Auto) 6.1 L, [place] % (Auto) 23.3 H, Eos % (Auto) 0.5, Baso % (Auto) 0.3, Absolute Neuts (auto) 6.8, Absolute Lymphs (auto) 0.60 L, Nucleated RBC % 0 12/06/18 08:20: Vancomycin Trough 18.5 H 12/07/18 05:45: WBC 9.3, RBC 3.33 L, Hgb 9.2 L, Hct 30.7 L, MCV 92.2, MCH 27.6, MCHC 30.0 L, RDW Std Deviation 50.0 H, RDW Coeff of Adriano 14.7 H, Plt Count 132 L, MPV 11.0 12/07/18 07:20: Vancomycin Trough 22.6 H Current Medications Acetaminophen (Tylenol) 1,000 mg PO Q8 SACHIN Last Admin: 12/07/18 05:25 Dose: 1,000 mg Documented by: Albuterol Sulfate (Ventolin Aerosols) 2.5 mg INHALATION Q6H.RT [facility] Last Admin: 12/07/18 06:43 Dose: 2.5 mg Documented by: Aspirin (Aspirin, Baby) 81 mg PO DAILY@0800 [facility] Last Admin: 12/07/18 08:02 Dose: 81 mg Documented by: Atorvastatin Calcium (Lipitor) 80 mg PO QHS [facility] Last Admin: 12/06/18 21:18 Dose: 80 mg Documented by: Ezetimibe (Zetia) 10 mg PO DAILY [facility] Last Admin: 12/07/18 08:05 Dose: 10 mg Documented by: Enteral Nutritional Formula (Ensure Surgery) 237 ml PO TIDCM [facility] Last Admin: 12/07/18 07:57 Dose: Not Given Documented by: Famotidine (Pepcid) 20 mg PO DAILY [facility] Last Admin: 12/07/18 08:02 Dose: 20 mg Documented by: Ceftriaxone Sodium 2 gm/ (Sodium Chloride) 50 mls @ 100 mls/hr IV Q24 [facility] Last Infusion: 12/06/18 09:49 Dose: Infused Documented by: Vancomycin IV Pharmacy to Dose (1 ea/ Sodium Chloride) 500 mls @ 250 mls/hr IV PRN PRN; Protocol PRN Reason: Rx to Dose Labetalol HCl (Trandate) 200 mg PO BID [facility] Last Admin: 12/07/18 08:01 Dose: 200 mg Documented by: Lisinopril (Zestril) 20 mg PO DAILY [facility] Last Admin: 12/07/18 08:01 Dose: 20 mg Documented by: Meloxicam (Mobic) 7.5 mg PO BID [facility] Last Admin: 12/07/18 08:00 Dose: 7.5 mg Documented by: Mesalamine (Apriso) 0.75 gm PO BID [facility] Last Admin: 12/07/18 08:17 Dose: 0.75 gm Documented by: Morphine Sulfate () 2 - 4 mg IV Q2H PRN PRN PRN Reason: Pain Score 6-10/10 Last Admin: 12/06/18 18:02 Dose: 2 mg Documented by: Morphine Sulfate () 2 - 4 mg IV Q2H PRN PRN PRN Reason: Pain Score 6-10/10 Ondansetron HCl (Zofran) 4 mg IV Q8H PRN PRN PRN Reason: NAUSEA Last Admin: 12/07/18 02:01 Dose: 4 mg Documented by: Oxycodone HCl (Oxyir) 5 - 10 mg PO Q4H PRN PRN PRN Reason: Pain Score 4-10/10 Last Admin: 12/06/18 21:18 Dose: 10 mg Documented by: Pantoprazole Sodium (Protonix) 40 mg PO DAILY [facility] Last Admin: 12/07/18 08:03 Dose: 40 mg Documented by: Promethazine HCl (Phenergan) 12.5 mg IM Q6H PRN PRN; Protocol PRN Reason: NAUSEA/VOMITING Last Admin: 12/06/18 19:38 Dose: 12.5 mg Documented by: Rivaroxaban (Xarelto) 10 mg PO DAILY@0600 [facility] Last Admin: 12/07/18 05:25 Dose: 10 mg Documented by: Senna/Docusate Sodium (Senokot-S, Tonya-Colace) 2 tablet PO BID [facility] Last Admin: 12/07/18 08:01 Dose: 2 tablet Documented by: Sodium Chloride () 10 - 40 ml IV UD PRN PRN Reason: SALINE FLUSH Last Admin: 12/07/18 07:58 Dose: 10 ml Documented by: Discharge Diet: No Restrictions Discharge Activity: May Not Drive May shower in (days): 1 - Turn dressing away from water Ice area for (Minutes): 20 - Every 1-2 hours while awake Weight Bearing Status: Toe touch weight bearing - With walker Keep extremity elevated above heart level: Operative Extremity Additional Activity Instructions:: Wear elastic stockings for 2 weeks after your surgery. Call your doctor if your incision/area has: Continuous Slow Oozing, Sudden Increased Bleeding, Increased Pain/ Swelling, Increased Redness, Foul Smelling Discharge Call your doctor if you observe: Fever of 101 or Higher, Coldness, Increased Pain, Numbness or Tingling, Change in Color, Calf discomfort, Uncontrolled pain Change Dressing in (Days):: 1 - and daily as needed. Remove Dressing in (days):: 3 - Okay to remove dressing on December 09, 2018 Home Medications: Medications to take at Discharge Aspirin [Aspirin, Baby] 81 mg PO DAILY@0800 11/25/18 Esomeprazole Mag Trihydrate [Nexium] 40 mg PO DAILY 11/25/18 Ezetimibe [Zetia] 10 mg PO DAILY 11/25/18 Labetalol [Trandate (Beta Kim)] 200 mg PO BID 11/25/18 Lisinopril [Zestril] 20 mg PO DAILY 11/25/18 Mesalamine [Apriso] 0.75 gm PO BID 11/25/18 Rosuvastatin Calcium [Crestor] 40 mg PO DAILY 11/25/18 Ceftriaxone 2 gm IV Q24 40 Days #40 vial 12/05/18 Acetaminophen [Tylenol] 1,000 mg PO Q8 #100 tab 12/06/18 Oxycodone [Oxyir] 5 - 10 mg PO Q4H PRN PRN 5 Days #60 tab 12/06/18 Rivaroxaban [Xarelto] 10 mg PO DAILY@0600 #12 tab 12/06/18 Senna/Docusate Sodium [Senokot-S] 2 tab PO BID #10 tab 12/06/18 Vancomycin IV [Vancomycin] 1,000 mg IV Q12H 40 Days #80 bag 12/06/18 Following Prescrptions Were Given to Patient: Ceftriaxone 2 gm IV Q24 40 Days #40 vial Prescription Printed Oxycodone [Oxyir] 5 - 10 mg PO Q4H PRN PRN 5 Days #60 tab PRN Reason: Pain Score 4-10 Prescription Printed Senna/Docusate Sodium [Senokot-S] 2 tab PO BID #10 tab Prescription Printed Acetaminophen [Tylenol] 1,000 mg PO Q8 #100 tab Prescription Printed Vancomycin IV [Vancomycin] 1,000 mg IV Q12H 40 Days #80 bag Prescription Printed Rivaroxaban [Xarelto] 10 mg PO DAILY@0600 #12 tab Prescription Printed Other Amb Orders: Basic Metabolic Profile (BMP) Time Frame: 1 Day, Facility: [facility], Location: Laboratory Vancomycin, Trough Level Time Frame: 1 Day, Facility: [facility], Location: Laboratory Primary Care Physician: Amilcar Connors MD [Primary Care Provider] - Please follow up with your Primary Care Physician in: this week for oxygen management Please Follow Up With: Ousmane Joy PA-C When: 12/18/18 @ 9:30 am Please Follow Up With: Amilcar Epperson MD When: schedule 2 week follow up with infectious disease Additional Instructions: Follow orthopedic postop instructions Weightbearing restrictions: Patient will be toe-touch weightbearing with knee immobilizer with use of walker Continue with knee immobilizer at all times but can on loosen it while sitting to work on icing. Must be on when up walking. Medical Necessity - Tobacco Use Smoking Status: Former smoker Tobacco Use: Non-smoker Meaningful Use Info Meaningful Use Diagnoses (Choose all that apply): VTE - VTE Anticoag overlap given w/in hospital stay or rx'd at dc?: Yes Pt receive overlap for 5 days?: Yes
--- NOTE | 2018-12-07 09:00 | PCA ---
Addendum entered by Lisa Flores 12/07/18 17:12: Original Note: This Am friend mary de called this receptionist secretary and asked if patient gets to go home that they drive an hour and half to come get her and they dont want to be driving to come get her and she wont be able to come home. At this time doctor kendra informed the patient that she will get to go home after they deliver her o2. This receptionist secretary asked mental health social worker sarmad if everything is ready and she said yes so told them that they can head this way. Mary said ok.
--- NOTE | 2018-12-07 10:14 | CM.UR ---
Addendum entered by Sona Tompkins 12/07/18 13:43: Based upon results of the CTA patient's discharge has been held. Alerted [facility] that the dc is being held at this time and will alert them when patient is being discharged. Answering service will alert on-call RN and have them call me with any additional questions. Saira Tompkins RN, [facility]. Addendum entered by Sona Tompkins 12/07/18 11:30: Received call from PRISCA Capellan nurse concrete block plant supervisor at [facility]. States he is concerned that tomorrow being a Sunday that they won't get the results of the labs timely. states they are usually faxed to the office and no one will be in the office to receive the fax to then call the doctor. Asked if they could put on the lab req to call the dr with the vanco trough results. States he could but concerned if it will get done. He would be more comfortable if things are not stable that she stays IP til tomorrow. Explained that it is just the vanco trough that is off. explained that she is having more testing so we'll see what that determines and go from there. Saira Tompkins RN, [facility]. Addendum entered by Sona Tompkins 12/07/18 11:23: received call back from PRISCA Kebede at [facility]. Instructed to hold vanco tonight and to do start of care tomorrow and to get the vanco trough and bmp prior to morning dose with results to Dr. Gonsales. explained that his number is included to fax in order to call him with results. Verb understanding. Saira Tompkins RN, [facility]. Addendum entered by Sona Tompkins 12/07/18 10:30: Received notification from Dr. Sam that this patient will also need home O2. States D-dimer just came back and it is elevated. States he is ordering her a CTA of chest and home o2. PRISCA Beasley notified heel caser that the patient wants O2 from [facility] d/t had it previously from there. Saira Tompkins RN, CCM. Original Note: Received call from Dr. Gonsales stating he was discharging this patient today however her vanco trough is getting higher. States he wants tonight's dose held and then in AM a vanco trough and BMP obtained. requested he put into dc instructions. Called [facility] and asked that they page nurse who is covering so I can update her. Printed DC summary, instructions and progress note from today and faxed to [facility] agency at this time. Had not received return call by time finished with this note. Saira Tompkins RN, CCM.
[2018-12-07 10:15] LABS: D-Dimer Quantitative (DVT/PE) 1.13 FEU/ug/m (0.27-0.49)
[2018-12-07] MEDS: oxyCODONE 5 MG Tablet PO ×2 (10:18→20:22)
--- NOTE | 2018-12-07 10:26 | CT_ITS ---
STUDY: CTA CHEST REASON FOR EXAM: Female, 73 years old. Elevated d-dimer hypoxia tachycardia recent knee surgery RADIATION DOSAGE (If Supplied By Facility): CTDIvol = ( 10.81 ) mGy, DLP = ( 333.70 ) mGycm TECHNIQUE: The examination was performed with the intravenous administration of IV Isovue 370 100mL. Post-processing of the angiographic images was performed, with multiplanar reformation and 3D reconstruction. Individualized dose optimization techniques were used for this CT. COMPARISON: 12/05/2018 chest x-ray FINDINGS: Normal enhancement of the main pulmonary artery and right and left pulmonary arteries. Normal enhancement of the bilateral peripheral pulmonary arteries. There is no demonstrated pulmonary embolism. There is atherosclerotic calcification of the aortic arch with tortuosity. There is no demonstrated aortic dissection. There is mild cardiac enlargement, there are coronary calcifications. There are nonspecific reactive appearing lymph nodes in the mediastinum. Normal hilar regions. There is partial opacification of the distal lung bases bronchial structures. There is bilateral lower lobe consolidation right greater than left. There is focal lingular consolidation. Normal pleura. Normal chest wall structures. There is kyphosis multilevel degenerative change. At C5 there is been kyphoplasty material injected. There is kyphoplasty material just posterior to the aorta in the prevertebral space. At T11 there is chronic appearing 50% loss of height. At that level there is mild neural foramina narrowing. There is a bony hemangioma at T8. Liver appears enlarged fatty infiltrated. There is a minimal hiatal hernia. CT/CTA Chest W/WO Contrast IMPRESSION: Bilateral lower lobe lingular consolidation highly suspicious for pneumonia cannot anteriorly exclude aspiration pneumonia there is a opacified appearance of the distal bronchial structures in the same vicinity. No visualized pulmonary embolism Atherosclerotic disease of the aorta and coronary arteries. Mild cardiac enlargement. Degenerative changes of thoracic spine. Kyphosis, kyphoplasty T5 50% loss of height at T11. Electronically Signed: Dorene Pickens MD at 12:03 EDT Tel , Service support ,
--- NOTE | 2018-12-07 10:30 | PCA ---
Found out that patient o2 wasnt going to be delivered until after 3ish so let her ride jaz know that they dont need to come get her until around 5pm. they said that was ok cause they are going out to eat first then coming to get patient
[2018-12-07] MEDS: 0.9% Normal Saline 1,000 ML 75 ML IV (11:29)
--- NOTE | 2018-12-07 13:00 | NURSING ---
note sent to pharmacy and spoke with Balbina the pharmacist to hold anne marie's vancomycin, and a trough is ordered for in the am to adjust medication.
--- NOTE | 2018-12-07 13:30 | PCA ---
this [place] found out that doctor isnt going to release patient today. Called her friend Mary and didn't get a hold of them but got answering machine and left a message to call this area secretary back at the floor number and didn't hear back. i went to patient to ask if she had her friends cell number so I can call her ride for her to tell them that they dont need to come until tomorrow now. Patient was upset cause her friends is going to be highly upset that he had to drive an hour and half to come get her. She is also upset and don't understand why she cant go home now when kendra told her yes this am and now hospitalist is telling her no. Ramos her nurse was in with patient explaining to her why she isnt now.
--- NOTE | 2018-12-07 16:15 | PCA ---
This Vice President Quality Assurance went and passed charges to this patient room and patient asked me if her friends are here yet I told her no I haven't seen them nor have they called me back. I apologized that I was sorry that I couldn't get a hold of them and not have them come get her. She told me she is calling her real estate attorney cause we are holding her hostage. She asked me what I told her friend which was on the contact list to give info to. I told her what my exact words were to them. She said that she is going to make sure I don't have a job cause I didn't do my job right. I proceeded to tell her that I just did what I was told to tell them when to pick her up.. That I am not the one who makes decisions who gets to go home, that my job is to answer the phone and assist people when needed. That I apologize for the mishap. She was highly upset at everyone. She also told me that she will make sure when her friend gets here that she will tell them that it was all my fault that this is happening to her. I apologized one last time and the patient didn't like my apology. I came out of room and let nurse know what she said.
--- NOTE | 2018-12-07 16:44 | NURSING ---
Addendum entered by Cass Lambert 12/08/18 08:35: When friends left floor yesterday friend Mary was in tears. She states she is about done helping patient- pt is not thankful and calls her names like stupid and yells at her. Mr. Moreno visibly upset that was upset by pt. Addendum entered by Cass Lambert 12/07/18 19:37: Patient was told that she could be d/c'ed from ortho. standpoint early this AM. Dr. Sam stated his intention to d/c pt home today with home oxygen, due to reading of 77% on RA. Patient had been notified of d/c plans and person to notify- Mary and Mikael Moreno were contacted and notified. Patient began having increase in shortness of breath and D.dimer was ordered and elevated. Elevated D.dimer led to order for chest CTA which revealed pneumonia. Discharge was cancelled at that time. Lisa, DARRYN/herbicide service sales representative attempted to contact Mary and Mikael again but only had home phone number and not his cell. Lisa left a message on their answering machine. She had been notified by Mikael that they would come and eat at the [employer] [place] before picking pt up. Mikael and Mary then arrived and Mikael was very upset regarding 1.5hr drive to hospital and the fact that he picked up her IV meds in a big sealed box and refuses to take them back to his house. Mr. Moreno stated that they are friends of patient and not family. He states that the family is too busy and that there is tension. This RN contacted pharmacy and RN gang supervisor pipe lines to find a solution. Large box brought up to unit in wheelchair by this RN and then Mr. Moreno opened the seal in front of this RN and RN gang supervisor pipe lines-so that staff could place the medications in the refrigerator until pt d/c'ed with assist of RN gang supervisor pipe lines. Meds tied into belongings bag and her patient labels adhered to bag- information passed to patient scheduling coordinator. Also, Mary notified this RN that patient requested her purse and was attempting to take pills and was reasoning that the doctor gave them to me for my knee and I am going to take them. She became very obsessed with Morphine and stated that she does not want that on her chart. Same removed. notified of pills and of pt behavior- very accusatory, argumentative and suspicious. Tylenol and excedrin locked in med drawer and oxyir found later and counted by this RN and PRISCA Beasley and sealed and placed in locked med room drawer. Pt has been telling staff t/o day that she was going to call her face worker and told Mr. Moreno to contact the police at one point as well. Mr. Moreno states that he is sorry that staff have to put up with her behavior. He states that he rarely sees pt and that his is friends with her. They state they will not be able to provide any assist to patient after d/c from hospital and that family does not come either. Friends concerned for pt safety. They also report that patient has become noticeably more bossy, suspicious, forgetful over the past 6+ months. Original Note: MALE VISITOR IN [facility], RAISES VOICE TO NURSING STAFF AND STATES 'WE ARE GOING TO HAVE PROBLEMS HERE. PHONED MACHINE COIL ASSEMBLER AMANDA AND REQUESTED HIS PRESENCE- STATES HE WILL BE UP.
[2018-12-07] MEDS: Ipratropium/Albuterol Sulfate 3 ML AMPUL.NEB INHALATION (19:56)
[2018-12-07] MEDS: Atorvastatin Calcium 80 MG Tablet PO (21:17)
[2018-12-08] VITALS (11 sets, daily range): BP systolic 134–187; BP diastolic 64–95; PULSE 84–92; RESP 16–20; TEMP 36.9–37.5; O2SAT 1–98
[2018-12-08] MEDS: Ipratropium/Albuterol Sulfate 3 ML AMPUL.NEB INHALATION ×3 (01:32→21:58)
[2018-12-08] MEDS: Rivaroxaban 10 MG Tablet PO (06:26)
[2018-12-08 08:08] LABS: Absolute Lymphocyte Count 0.53 X10^3/uL (0.83-4.51); Absolute Neutrophil Count 5.1 X10^3/uL (2.0-7.7); Basophil# 0.01 X10^3/uL; Basophil% 0.1 % (0-1); Eosinophil# 0.02 X10^3/uL; Eosinophils% 0.3 % (0-5); Hematocrit 27.1 % (37-47); Hemoglobin 8.3 g/dL (12.0-15.0); Lymphocyte # 0.53 X10^3/ul (4.0); Lymphocyte % 7.2 % (19-41); Mean Corp Hgb Conc 30.6 g/dL (32-36); Mean Corpuscular Volume 91.6 fL (81-99); Mean Platelet Vol. 10.9 fl (6.2-12.0); Monocyte# 1.58 X10^3/uL; Monocyte% 21.6 % (0-10); NRBC Flagged by Analyzer 0 % (0-5); Neutrophil # 5.07 X10^3/uL (2.7-7.7); Neutrophil % 69.2 % (47-70); POSITIVE DIFFERENTIAL YES; Platelet Count 127 K/mm3 (150-450); RBC Distribution Width SD 50.2 fl (35.1-43.9); Red Blood Count 2.96 M/mm3 (4.2-5.4); White Blood Count 7.3 K/mm3 (4.4-11.0)
[2018-12-08 08:21] LABS: Differential Indicated SCAN CRITERIA MET
[2018-12-08 08:22] LABS: Anion Gap 4 (5-15); BUN 18 mg/dL (7-18); BUN/Creat Ratio 25.6 RATIO (10-20); Calcium,Total 8.7 mg/dL (8.5-10.1); Chloride 105 mmol/L (98-107); EST Glomerular Filtration Rate 87 mL/min (>60); Est Glom Filt Rate - Afr Amer 105 mL/min (>60); Estimated Creatinine Clearance 44.56 ml/min; Glucose 100 mg/dL (74-106); Potassium 4.2 mmol/L (3.5-5.1); Sodium Level 141 mmol/L (136-145)
[2018-12-08 08:36] LABS: Vancomycin, Trough Level 11.4 ug/mL (5.0-15.0)
[2018-12-08 08:42] LABS: Differential Comment SCANNED
--- NOTE | 2018-12-08 09:26 | PCM.PROGNOTE ---
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 Postoperative course complicated by hypoxia and she was found to have bilateral lower lobe healthcare associated versus aspiration pneumonia. Patient seen and examined. No acute events overnight. She denies any chest pain or shortness of breath. She denies cough or sputum production. She denies fever or chills. Patient has been argumentative. Reportedly, patient has been intimately confused. When I asked the patient if she forgets things such as names, she was upset. She has been afebrile, blood pressure and heart rate are stable, pulse ox is 95% on 2 L. - Physical Exam Vitals/I&O's: Vital Signs Temp Pulse Resp BP Pulse Ox 98.7 F 92 16 134/64 H 94 12/08/18 01:47 EST 12/08/18 06:53 12/08/18 06:53 12/08/18 01:47 EST 12/08/18 06:53 Oxygen Flow Rate (L/min) 2 Oxygen Delivery Method Nasal Cannula Weight: 184 lb Body Mass Index (BMI) 31.6 Intake and Output for Last 24 Hours 12/06/18 12/07/18 12/08/18 23:59 23:59 22:59 Intake Total 1700 / 2100 1093 / 1093 1335.00 / 1335.00 Output Total 2960 / 2960 1300 / 1300 600 / 600 Balance -1260 / -860 -207 / -207 735.00 / 735.00 General: Alert, Oriented x3, No apparent distress, - - Argumentative HEENT: Atraumatic, PERRLA, EOMI, Normocephalic Oral: Moist Mucosa, No Gingival or Mucosal Lesions/ Ulcerations Neck: Supple, No JVD, Negative Carotid Bruits, Trachea Midline, Thyroid Normal Size and Texture Lungs: No rhonchi, No wheeze, No rales, Diminished, - - Decreased breath sounds at the bases, otherwise clear. Cardiovascular: Regular rate, Regular Rhythm, Normal S1, Normal S2, PMI Normal Abdomen: Bowel Sounds Present, Soft, Non Tender, Non-Distended, No Hepato-splenomegaly Extremities: No clubbing, No cyanosis, No edema Skin: No rashes, No breakdown Lymphatic: No Cervical, Supraclavicular, or Inguinal Adenopathy Neurological: Cranial nerves II-XII grossly intact, Motor Exam 5/5 strength throughout Psych/Mental Status: Normal Affect, Appropriate Microbiology Past 72 Hours 12/04/18 Unknown Tissue - Knee Gram Stain - Final 12/04/18 Unknown Tissue - Knee Wound Culture - Preliminary No growth-Final to follow 12/04/18 Unknown Tissue - Knee Anaerobic Culture - Preliminary No growth in 48 hours. 12/04/18 Unknown Tissue - Knee Gram Stain - Final 12/04/18 Unknown Tissue - Knee Wound Culture - Preliminary No growth-Final to follow 12/04/18 Unknown Tissue - Knee Anaerobic Culture - Preliminary No growth in 48 hours. 12/04/18 Unknown Tissue - Knee Gram Stain - Final 12/04/18 Unknown Tissue - Knee Wound Culture - Preliminary No growth-Final to follow 12/04/18 Unknown Tissue - Knee Anaerobic Culture - Preliminary No growth in 48 hours. Laboratory Results 12/08/18 07:33: WBC 7.3, RBC 2.96 L, Hgb 8.3 L, Hct 27.1 L, MCV 91.6, MCH 28.0, MCHC 30.6 L, RDW Std Deviation 50.2 H, RDW Coeff of Adriano 15.0 H, Plt Count 127 L, MPV 10.9, Immature Gran % (Auto) 1.600 H, Neut % (Auto) 69.2, Lymph % (Auto) 7.2 L, [place] % (Auto) 21.6 H, Eos % (Auto) 0.3, Baso % (Auto) 0.1, Absolute Neuts (auto) 5.1, Absolute Lymphs (auto) 0.53 L, Nucleated RBC % 0, Differential Comment SCANNED 12/08/18 07:33: Sodium 141, Potassium 4.2, Chloride 105, Carbon Dioxide 32.0, Anion Gap 4 L, BUN 18, Creatinine 0.70, Estim Creat Clear Calc 44.56, Est GFR (MDRD) Af Amer 105, Est GFR (MDRD) Non-Af 87, BUN/Creatinine Ratio 25.6 H, Glucose 100, Calcium 8.7 12/08/18 07:33: Vancomycin Trough 11.4 Current Medications Acetaminophen (Tylenol) 1,000 mg PO Q8 [facility] Last Admin: 12/08/18 06:26 Dose: Not Given Documented by: Albuterol/Ipratropium (Duoneb) 3 ml INHALATION Q6H.RT [facility] Last Admin: 12/08/18 06:53 Dose: 3 ml Documented by: Aspirin (Aspirin, Baby) 81 mg PO DAILY@0800 [facility] Last Admin: 12/07/18 08:02 Dose: 81 mg Documented by: Atorvastatin Calcium (Lipitor) 80 mg PO QHS [facility] Last Admin: 12/07/18 21:17 Dose: 80 mg Documented by: Ezetimibe (Zetia) 10 mg PO DAILY [facility] Last Admin: 12/07/18 08:05 Dose: 10 mg Documented by: Enteral Nutritional Formula (Ensure Surgery) 237 ml PO TIDCM [facility] Last Admin: 12/07/18 18:01 Dose: Not Given Documented by: Famotidine (Pepcid) 20 mg PO DAILY [facility] Last Admin: 12/07/18 08:02 Dose: 20 mg Documented by: Ceftriaxone Sodium 2 gm/ (Sodium Chloride) 50 mls @ 100 mls/hr IV Q24 [facility] Last Infusion: 12/07/18 11:29 Dose: Infused Documented by: Vancomycin IV Pharmacy to Dose (1 ea/ Sodium Chloride) 500 mls @ 250 mls/hr IV PRN PRN; Protocol PRN Reason: Rx to Dose Piperacillin Sod/Tazobactam (Sod 3.375 gm/ Sodium Chloride) 50 mls @ 12.5 mls/hr IV Q8 [facility] Last Admin: 12/08/18 06:27 Dose: 12.5 mls/hr Documented by: Labetalol HCl (Trandate) 200 mg PO BID [facility] Last Admin: 12/07/18 21:18 Dose: 200 mg Documented by: Lisinopril (Zestril) 20 mg PO DAILY [facility] Last Admin: 12/07/18 08:01 Dose: 20 mg Documented by: Meloxicam (Mobic) 7.5 mg PO BID [facility] Last Admin: 12/07/18 21:18 Dose: 7.5 mg Documented by: Mesalamine (Apriso) 0.75 gm PO BID [facility] Last Admin: 12/07/18 21:21 Dose: 0.75 gm Documented by: Morphine Sulfate () 2 - 4 mg IV Q2H PRN PRN PRN Reason: Pain Score 6-10/10 Ondansetron HCl (Zofran) 4 mg IV Q8H PRN PRN PRN Reason: NAUSEA Last Admin: 12/07/18 02:01 Dose: 4 mg Documented by: Oxycodone HCl (Oxyir) 5 - 10 mg PO Q4H PRN PRN PRN Reason: Pain Score 4-10/10 Last Admin: 12/07/18 20:22 Dose: 10 mg Documented by: Pantoprazole Sodium (Protonix) 40 mg PO DAILY [facility] Last Admin: 12/07/18 08:03 Dose: 40 mg Documented by: Promethazine HCl (Phenergan) 12.5 mg IM Q6H PRN PRN; Protocol PRN Reason: NAUSEA/VOMITING Last Admin: 12/06/18 19:38 Dose: 12.5 mg Documented by: Rivaroxaban (Xarelto) 10 mg PO DAILY@0600 [facility] Last Admin: 12/08/18 06:26 Dose: 10 mg Documented by: Senna/Docusate Sodium (Senokot-S, Tonya-Colace) 2 tablet PO BID [facility] Last Admin: 12/07/18 21:18 Dose: 2 tablet Documented by: Sodium Chloride () 10 - 40 ml IV UD PRN PRN Reason: SALINE FLUSH Last Admin: 12/07/18 11:29 Dose: 20 ml Documented by: Medical Necessity - Tobacco Use Smoking Status: Former smoker Tobacco Use: Non-smoker Assessment/Plan All Active Problems 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 Her postoperative course complicated by hypoxia and bilateral lower lobe healthcare associated versus aspiration pneumonia. #1 status post removal of left total knee replacement/placement of back spacer/placement of nonbiodegradable antibiotic delivery system: This was done for periprosthetic left knee infection, postoperative day 4. She is on IV Rocephin and vancomycin. She is on IV morphine and OxyIR PRN for pain. Orthopedic surgery is on the case. Infectious disease consulted, recommended to discharge patient on IV Rocephin and vancomycin. #2 Bilateral lower lobe healthcare associated versus aspiration pneumonia/hypoxia: CTA chest done yesterday for elevated d-dimer and showed no PE, no dissection, revealed bilateral lower lobe consolidation. Patient started on IV Zosyn and maintained on IV Rocephin and vancomycin. Repeat routine blood work from today was unremarkable, no leukocytosis, hemoglobin is 8.2 g/dL. Patient mentioned that she used to be on oxygen few years ago at home but she is not using it nowadays. Her pulse ox has been maintained on 2 L. Patient may need to go home with oxygen. And to continue same treatment, possible DC home tomorrow. #3 postoperative anemia: This is likely due to blood loss during surgery and hemodilution. Today's hemoglobin is 8.3 g/dL. No evidence of active bleeding. Plan to repeat H&H tomorrow morning. #4 hypertension: Blood pressure stable, continue lisinopril and labetalol. #5 peripheral vascular disease: Stable, continue aspirin and statins. #6 hyperlipidemia: Continue statins. #7 GERD: Stable, continue Protonix. #8 colitis: Stable, continue mesalamine. #9 DVT prophylaxis: Continue Xarelto. This note was generated with [employer] dictation software. It may contain incorrect words, spelling, and punctuation that were not noted in checking the note before signing. Code Visit Inpatient E&M: 32490 Subs Hosp L2
--- NOTE | 2018-12-08 09:51 | NURSING ---
Mr. Moreno is friend of patient and will likely be transport if pt able to return home. His cell phone is not on chart and he wishes it to be. Cell phone number is: [phone].
--- NOTE | 2018-12-08 10:31 | NURSING ---
This RN entered room to hang Vancomycin to try to keep on time schedule 0800 and 2000. IV Zosyn was hung early this AM- however, was attached to tubing that was not being used. Bag full and was to run over 4 hours. Pharmacist Erick consulted and asked if ATB can run over 30 minutes to keep Vancomycin closer to schedule. Erick states ok- same completed at this time and Vancomycin to be hung directly after.
[2018-12-08] MEDS: Aspirin 81 MG TAB.CHEW PO (10:36)
[2018-12-08] MEDS: Senna/Docusate Sodium 1 Tablet 2 TABLET PO ×2 (10:39→22:00)
[2018-12-08] MEDS: Famotidine 20 MG Tablet PO (10:39)
[2018-12-08] MEDS: Lisinopril 20 MG Tablet PO (10:39)
[2018-12-08] MEDS: Labetalol 200 MG Tablet PO ×2 (10:39→22:00)
[2018-12-08] MEDS: Ezetimibe 10 MG Tablet PO (10:39)
[2018-12-08] MEDS: Meloxicam 7.5 MG Tablet PO ×2 (10:40→22:00)
[2018-12-08] MEDS: Pantoprazole Sodium 40 MG Tablet PO (10:40)
[2018-12-08] MEDS: MESALAMINE 0.375 GM CAP.ER.24H 0.75 GM PO ×2 (10:42→22:02)
[2018-12-08] MEDS: oxyCODONE 5 MG Tablet PO ×3 (10:53→18:52)
[2018-12-08] MEDS: BENZOCAINE/MENTHOL 1 LOZENGE MUCOUS MEM (11:07)
--- NOTE | 2018-12-08 11:33 | NURSING ---
Addendum entered by Cass Lambert 12/08/18 17:00: Linen Tech states that yesterday evening Mr. Moreno called in to ask about putting ice packs in freezer and notified paralegal legal secretary that he did have a missed call from the hospital at 1330 with message attempting to stop them from coming to hospital. Addendum entered by Cass Lambert 12/08/18 16:51: This RN was present for majority of time Mr. Moreno was with patient and his Mary on 12/08. patient was very agitated and argumentative. She told her friends that the paralegal legal secretary made them drive all this way on purpose and asked this nurse to bring her in the room. She stated at that time that she was going to make her lose her job. She told paralegal legal secretary earlier that if she was going down so would she. She kept asking staff to get out of her room because she wanted to talk to her friends in private. Privacy was given when requested. Today 12/08 patient was telling this RN that she was going to bat for sprague and she was the one that was trying to protect her, but that no one every appreciates her. She states that when her friends left yesterday her friend Mary was upset because of how mean Mr. Moreno was- this RN spoke with friend prior to d/c and she stated at that time that pt called her stupid and continued to talk down to her and treated her poorly. Pt has a very poor memory and is very adamant that she is always correct and gets very agitated and angry if you tell her otherwise. Original Note: When Dr. Sam was in room, patient asked him and this RN if she was in the hospital or in the senior living. 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 This RN notified patient that she is currently in the hospital. Pt calmed down. She then asked Dr. Sam if we have called her daughter. Patient has her friends listed as her only contacts and asked that her family not be notified of anything. This RN notified patient that she will assist her with calling her daughter- when attempted patient states, No I don't want you to bother her- she is a practitioner and very busy working at the pain clinic. Reminded pt that today is Sunday and pt states well she has a downs' syndrome daughter and I do not want to bother them. Do not call her. Yesterday Mr. Moreno states that there is some tension between the family and that they are the only ones that patient wants to be contacted. Patient now states that after yesterday and how mean Mr. Moreno was to her that she does not want staff to call him for anything and that she will need help getting home if d/c'ed tomorrow. Staff notified patient that we will check on availability of hospital van tomorrow if discharged. Pt has needed constant reminders of reasons being here and is very forgetful- but if questioned pt becomes very angry and begins yelling. Again, friends have noted some issues with memory over past few months. Patient notified this RN today that she recently had her religion family come and help her clean out her house because she is a hoarder. She states that she was trying to sell her house to get a condo but that it did not work out and that she will try to sell it again next year to go to a condo. Pt states her 15 years ago and that she lives by herself. Friends have notified staff that they believe she will try to rely on them and that they have their own health issues and will not be able to help her. Dr. Gonsales notified of patient's demeanor and that she is A&Ox2 at this time. Dr. Gonsales states that case management will need to reevaluate discharge plan again tomorrow.
--- NOTE | 2018-12-08 12:22 | PCM.RX.CS ---
Consult Pharmacy has been consulted to manage selected antiobiotic: Vancomycin Type of Consult: Follow-up Suspected Infection: Pneumonia Prior Doses of Antibiotics Received/Current Regimen: Received 1gm iv on 12.07.18 @0758. Labs: Sodium 141 mmol/L (136-145) 12/08/18 07:33 Potassium 4.2 mmol/L (3.5-5.1) 12/08/18 07:33 Chloride 105 mmol/L (98-107) 12/08/18 07:33 Carbon Dioxide 32.0 mmol/L (21.0-32.0) 12/08/18 07:33 Anion Gap 4 (5-15) L 12/08/18 07:33 BUN 18 mg/dL (7-18) 12/08/18 07:33 Creatinine 0.70 mg/dL (0.55-1.02) 12/08/18 07:33 Est GFR (MDRD) Af Amer 105 mL/min (>60) 12/08/18 07:33 Est GFR (MDRD) Non-Af 87 mL/min (>60) 12/08/18 07:33 BUN/Creatinine Ratio 25.6 RATIO (10-20) H 12/08/18 07:33 Glucose 100 mg/dL (74-106) 12/08/18 07:33 Vancomycin Trough 11.4 ug/mL (5.0-15.0) 12/08/18 07:33 Microbiology: Microbiology 12/04/18 Unknown Tissue - Knee Gram Stain - Final 12/04/18 Unknown Tissue - Knee Wound Culture - Preliminary No growth-Final to follow 12/04/18 Unknown Tissue - Knee Anaerobic Culture - Preliminary No growth in 48 hours. 12/04/18 Unknown Tissue - Knee Gram Stain - Final 12/04/18 Unknown Tissue - Knee Wound Culture - Preliminary No growth-Final to follow 12/04/18 Unknown Tissue - Knee Anaerobic Culture - Preliminary No growth in 48 hours. 12/04/18 Unknown Tissue - Knee Gram Stain - Final 12/04/18 Unknown Tissue - Knee Wound Culture - Preliminary No growth-Final to follow 12/04/18 Unknown Tissue - Knee Anaerobic Culture - Preliminary No growth in 48 hours. 11/25/18 13:51 Swab (Method) Nasal Screen MRSA/MSSA - Final Weight used for dosin.5 kg Estimated Creatinine Clearance: ~45ml/min Goal Trough: 15-20 mcg/mL Pharmacy Plan for Drug Dosing: Trough level today 24hrs post dose was 11.4. Have evaluated and begun dose of 750mg iv q12h in anticipation of discharge. Will repeat trough level in AM 12.09.18 due to fluctuating dosing and levels. Pharmacy Service will continue to monitor and adjust dosing as required. Follow-Up Labs: Trough Vancomycin - 12.09.18 @0730 before 0800 dose
[2018-12-08] MEDS: Acetaminophen 500 MG Tablet 1000 MG PO ×2 (13:22→21:59)
--- NOTE | 2018-12-08 13:57 | PCM.PN.ORT ---
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 No acute events overnight. However they did do a CTA yesterday based on her continued low pulse ox. No pulmonary emboli were noted however patient was noted to have some suspicious areas for pneumonia. Zosyn was started and patient was started on pneumonia treatment. She does have a history of using oxygen at home. She continues to states she is independent and her daughter lives down the street and is ready to continue to help her. There are some conflicting reports from her friends. At times based on nursing report she does seem confused or combative but is always cordial and oriented with me. I think there is a level of frustration from the patient. - Physical Exam Vitals/I&O's: Vital Signs Temp Pulse Resp BP Pulse Ox 98.8 F 89 18 148/80 H 92 12/08/18 10:55 12/08/18 10:55 12/08/18 10:55 12/08/18 10:55 12/08/18 10:55 Oxygen Flow Rate (L/min) 1 Oxygen Delivery Method Nasal Cannula Weight: 184 lb Body Mass Index (BMI) 31.6 Intake and Output for Last 24 Hours 12/06/18 12/07/18 12/08/18 23:59 23:59 22:59 Intake Total 1700 / 2100 1093 / 1093 2130.00 / 2130.00 Output Total 2960 / 2960 1300 / 1300 950 / 950 Balance -1260 / -860 -207 / -207 1180.00 / 1180.00 General: Alert, Oriented x3, Cooperative Extremities: - - Left lower extremity: Dressing is clean dry and intact Sensations intact to light touch saphenous, sural, superficial peroneal, deep peroneal, and tibial distributions Motors intact EHL, DF, PF calves are soft and supple Microbiology Past 72 Hours 12/04/18 Unknown Tissue - Knee Gram Stain - Final 12/04/18 Unknown Tissue - Knee Wound Culture - Preliminary No growth-Final to follow 12/04/18 Unknown Tissue - Knee Anaerobic Culture - Preliminary No growth in 48 hours. 12/04/18 Unknown Tissue - Knee Gram Stain - Final 12/04/18 Unknown Tissue - Knee Wound Culture - Preliminary No growth-Final to follow 12/04/18 Unknown Tissue - Knee Anaerobic Culture - Preliminary No growth in 48 hours. 12/04/18 Unknown Tissue - Knee Gram Stain - Final 12/04/18 Unknown Tissue - Knee Wound Culture - Preliminary No growth-Final to follow 12/04/18 Unknown Tissue - Knee Anaerobic Culture - Preliminary No growth in 48 hours. Laboratory Results 12/08/18 07:33: WBC 7.3, RBC 2.96 L, Hgb 8.3 L, Hct 27.1 L, MCV 91.6, MCH 28.0, MCHC 30.6 L, RDW Std Deviation 50.2 H, RDW Coeff of Adriano 15.0 H, Plt Count 127 L, MPV 10.9, Immature Gran % (Auto) 1.600 H, Neut % (Auto) 69.2, Lymph % (Auto) 7.2 L, [place] % (Auto) 21.6 H, Eos % (Auto) 0.3, Baso % (Auto) 0.1, Absolute Neuts (auto) 5.1, Absolute Lymphs (auto) 0.53 L, Nucleated RBC % 0, Differential Comment SCANNED 12/08/18 07:33: Sodium 141, Potassium 4.2, Chloride 105, Carbon Dioxide 32.0, Anion Gap 4 L, BUN 18, Creatinine 0.70, Estim Creat Clear Calc 44.56, Est GFR (MDRD) Af Amer 105, Est GFR (MDRD) Non-Af 87, BUN/Creatinine Ratio 25.6 H, Glucose 100, Calcium 8.7 12/08/18 07:33: Vancomycin Trough 11.4 Current Medications Acetaminophen (Tylenol) 1,000 mg PO Q8 [facility] Last Admin: 12/08/18 13:22 Dose: 1,000 mg Documented by: Albuterol/Ipratropium (Duoneb) 3 ml INHALATION Q6H.RT [facility] Last Admin: 12/08/18 13:13 Dose: Not Given Documented by: Aspirin (Aspirin, Baby) 81 mg PO DAILY@0800 [facility] Last Admin: 12/08/18 10:36 Dose: 81 mg Documented by: Atorvastatin Calcium (Lipitor) 80 mg PO QHS [facility] Last Admin: 12/07/18 21:17 Dose: 80 mg Documented by: Ezetimibe (Zetia) 10 mg PO DAILY [facility] Last Admin: 12/08/18 10:39 Dose: 10 mg Documented by: Enteral Nutritional Formula (Ensure Surgery) 237 ml PO TIDCM [facility] Last Admin: 12/08/18 12:52 Dose: Not Given Documented by: Famotidine (Pepcid) 20 mg PO DAILY [facility] Last Admin: 12/08/18 10:39 Dose: 20 mg Documented by: Ceftriaxone Sodium 2 gm/ (Sodium Chloride) 50 mls @ 100 mls/hr IV Q24 [facility] Last Admin: 12/08/18 13:14 Dose: 100 mls/hr Documented by: Vancomycin IV Pharmacy to Dose (1 ea/ Sodium Chloride) 500 mls @ 250 mls/hr IV PRN PRN; Protocol PRN Reason: Rx to Dose Piperacillin Sod/Tazobactam (Sod 3.375 gm/ Sodium Chloride) 50 mls @ 12.5 mls/hr IV Q8 [facility] Last Infusion: 12/08/18 10:54 Dose: Infused Documented by: Vancomycin HCl 750 mg/ Sodium (Chloride) 265 mls @ 250 mls/hr IV Q12H [facility] Last Infusion: 12/08/18 12:00 Dose: Infused Documented by: Sodium Chloride () 250 mls @ 15 mls/hr IV .[id number] PRN PRN Reason: Saline Flush Labetalol HCl (Trandate) 200 mg PO BID [facility] Last Admin: 12/08/18 10:39 Dose: 200 mg Documented by: Lisinopril (Zestril) 20 mg PO DAILY [facility] Last Admin: 12/08/18 10:39 Dose: 20 mg Documented by: Meloxicam (Mobic) 7.5 mg PO BID [facility] Last Admin: 12/08/18 10:40 Dose: 7.5 mg Documented by: Mesalamine (Apriso) 0.75 gm PO BID [facility] Last Admin: 12/08/18 10:42 Dose: 0.75 gm Documented by: Morphine Sulfate () 2 - 4 mg IV Q2H PRN PRN PRN Reason: Pain Score 6-10/10 Ondansetron HCl (Zofran) 4 mg IV Q8H PRN PRN PRN Reason: NAUSEA Last Admin: 12/07/18 02:01 Dose: 4 mg Documented by: Oxycodone HCl (Oxyir) 5 - 10 mg PO Q4H PRN PRN PRN Reason: Pain Score 4-10/10 Last Admin: 12/08/18 10:53 Dose: 10 mg Documented by: Pantoprazole Sodium (Protonix) 40 mg PO DAILY [facility] Last Admin: 12/08/18 10:40 Dose: 40 mg Documented by: Promethazine HCl (Phenergan) 12.5 mg IM Q6H PRN PRN; Protocol PRN Reason: NAUSEA/VOMITING Last Admin: 12/06/18 19:38 Dose: 12.5 mg Documented by: Rivaroxaban (Xarelto) 10 mg PO DAILY@0600 [facility] Last Admin: 12/08/18 06:26 Dose: 10 mg Documented by: Senna/Docusate Sodium (Senokot-S, Tonya-Colace) 2 tablet PO BID [facility] Last Admin: 12/08/18 10:39 Dose: 2 tablet Documented by: Sodium Chloride () 10 - 40 ml IV UD PRN PRN Reason: SALINE FLUSH Last Admin: 12/07/18 11:29 Dose: 20 ml Documented by: Throat Lozenges (Cepacol Sore Throat Lozenge) 1 lozenge MUCOUS MEM Q2H PRN PRN PRN Reason: SORE THROAT Last Admin: 12/08/18 11:07 Dose: 1 lozenge Documented by: Medical Necessity - Tobacco Use Smoking Status: Former smoker Tobacco Use: Non-smoker Assessment/Plan All Active Problems 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 S/P explant left total knee arthroplasty with placement of antibiotic spacer POD #4 2. Continue Pain Medications: Tylenol and OxyIR 3. DVT Prophylaxis: Xarelto for 2 weeks postoperatively then will switch over to baby aspirin twice daily for an additional 2 weeks at 2-week postop visit 4. PT/OT: Toe-touch weightbearing with knee immobilizer on at all times with use of walker. 5. H & H: Hemoglobin is 8.3 6. Reactive leukocytosis: White blood cell count is normalized this morning. 7. Encouraged Incentive Spirometry 8. Decreased pulse ox: Patient continues to oxygenate well with his low was 1 L of nasal cannula oxygen however drops below [address] scan did reveal areas concerning for pneumonia. Zosyn was started. Medicine would like to monitor for another 24 hours and potentially home with oxygen tomorrow 9. Infectious disease consult: Appreciate input on appropriate management with antibiotics. Patient currently is on vancomycin and ceftriaxone per infectious disease for culture negative PJI with empiric coverage. Gram-positive cocci on 1 Gram stain. Knee is doing well. Thank trough was low this morning. Doses have been adjusted. We will check Vanco trough again tomorrow morning. 10. Disposition: Case management involved for appropriate discharge and placement. Patient is going to proceed with home health care and states she has a daughter who is a nurse that can assist her at home. At this time the hope is that she can be discharged home tomorrow if she continues to remain medically stable. We will have social work meet with the patient again prior to discharge home to overall her needs and appropriate discharge destination. Currently patient is adamant that she will be able to take care of her needs at home with the help she has available and home health care. [facility] Office:
--- NOTE | 2018-12-08 14:29 | NURSING ---
This nurse encouraged pt to sit in chair. pt Refused, but was willing to walk in the tidwell. Reminded pt several times in the tidwell to be Toe Touch bearing. I know. Pt walked approximately 75 feet from bed, to tidwell and then to bathroom and back to bed.
[2018-12-08] MEDS: Atorvastatin Calcium 80 MG Tablet PO (22:00)
[2018-12-09] VITALS (10 sets, daily range): BP systolic 163–191; BP diastolic 76–94; PULSE 80–105; RESP 16–18; TEMP 36.7–37.3; O2SAT 94–98
[2018-12-09] MEDS: hydrALAZINE 20 MG/ML Vial 5 MG IV (04:52)
[2018-12-09] MEDS: Rivaroxaban 10 MG Tablet PO (05:00)
[2018-12-09] MEDS: Acetaminophen 500 MG Tablet 1000 MG PO ×2 (05:00→13:54)
[2018-12-09] MEDS: hydrALAZINE 20 MG/ML Vial 10 MG IV (06:57)
[2018-12-09 07:26] LABS: Hemoglobin 8.7 g/dL (12.0-15.0)
[2018-12-09] MEDS: Ipratropium/Albuterol Sulfate 3 ML AMPUL.NEB INHALATION ×2 (07:31→14:09)
[2018-12-09 08:08] LABS: Vancomycin, Trough Level 14.9 ug/mL (5.0-15.0)
[2018-12-09] MEDS: Aspirin 81 MG TAB.CHEW PO (08:23)
--- NOTE | 2018-12-09 08:29 | PCM.PROGNOTE ---
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 Postoperative course complicated by hypoxia and she was found to have bilateral lower lobe healthcare associated versus aspiration pneumonia. Patient seen and examined. No acute events overnight. She denies any cough or shortness of breath. Denies fever chills. She is feeling fine. Her blood pressure elevated, other vital signs are stable. - Physical Exam Vitals/I&O's: Vital Signs Temp Pulse Resp BP Pulse Ox 98.1 F 95 16 188/87 H 98 12/09/18 08:24 12/09/18 08:24 12/09/18 08:24 12/09/18 08:24 12/09/18 08:24 Oxygen Flow Rate (L/min) 1 Oxygen Delivery Method Nasal Cannula Weight: 184 lb Body Mass Index (BMI) 31.6 Intake and Output for Last 24 Hours 12/08/18 12/08/18 12/09/18 00:59 23:59 23:59 Intake Total 425.71 / 425.71 Output Total 700 / 700 Balance -274.29 / -274.29 General: Alert, Oriented x3, Cooperative, No apparent distress HEENT: Atraumatic, PERRLA, EOMI, Normocephalic Oral: Moist Mucosa, No Gingival or Mucosal Lesions/ Ulcerations Neck: Supple, No JVD, Negative Carotid Bruits, Trachea Midline, Thyroid Normal Size and Texture Lungs: Clear to auscultation, No rhonchi, No wheeze, No rales, Diminished, - - Decreased breath sounds at the bases, otherwise clear. Cardiovascular: Regular rate, Regular Rhythm, Normal S1, Normal S2 Abdomen: Bowel Sounds Present, Soft, Non Tender, Non-Distended, No Hepato-splenomegaly Extremities: No clubbing, No cyanosis, No edema Skin: No rashes, No breakdown Lymphatic: No Cervical, Supraclavicular, or Inguinal Adenopathy Neurological: Cranial nerves II-XII grossly intact, Neuro grossly intact Psych/Mental Status: Normal Affect, Appropriate, Alert and oriented to time, place, person, mood and affect Microbiology Past 72 Hours 12/04/18 Unknown Tissue - Knee Gram Stain - Final 12/04/18 Unknown Tissue - Knee Wound Culture - Preliminary No growth-Final to follow 12/04/18 Unknown Tissue - Knee Anaerobic Culture - Preliminary No growth in 48 hours. 12/04/18 Unknown Tissue - Knee Gram Stain - Final 12/04/18 Unknown Tissue - Knee Wound Culture - Preliminary No growth-Final to follow 12/04/18 Unknown Tissue - Knee Anaerobic Culture - Preliminary No growth in 48 hours. 12/04/18 Unknown Tissue - Knee Gram Stain - Final 12/04/18 Unknown Tissue - Knee Wound Culture - Preliminary No growth-Final to follow 12/04/18 Unknown Tissue - Knee Anaerobic Culture - Preliminary No growth in 48 hours. Laboratory Results 12/08/18 07:33: Differential Comment SCANNED 12/08/18 07:33: Vancomycin Trough 11.4 12/09/18 07:15: Hgb 8.7 L, Hct 28.0 L 12/09/18 07:15: Vancomycin Trough 14.9 Current Medications Acetaminophen (Tylenol) 1,000 mg PO Q8 [facility] Last Admin: 12/09/18 05:00 Dose: 1,000 mg Documented by: Albuterol/Ipratropium (Duoneb) 3 ml INHALATION Q6H.RT [facility] Last Admin: 12/09/18 07:31 Dose: 3 ml Documented by: Amoxicillin/Clavulanate Potassium (Augmentin Tablet) 875 mg PO BID [facility] Aspirin (Aspirin, Baby) 81 mg PO DAILY@0800 [facility] Last Admin: 12/09/18 08:23 Dose: 81 mg Documented by: Atorvastatin Calcium (Lipitor) 80 mg PO QHS [facility] Last Admin: 12/08/18 22:00 Dose: 80 mg Documented by: Ezetimibe (Zetia) 10 mg PO DAILY [facility] Last Admin: 12/08/18 10:39 Dose: 10 mg Documented by: Enteral Nutritional Formula (Ensure Surgery) 237 ml PO TIDCM [facility] Last Admin: 12/09/18 08:22 Dose: Not Given Documented by: Famotidine (Pepcid) 20 mg PO DAILY [facility] Last Admin: 12/08/18 10:39 Dose: 20 mg Documented by: Hydralazine HCl (Apresoline Iv) 10 mg IV Q4H PRN PRN PRN Reason: Sys >160 Last Admin: 12/09/18 06:57 Dose: 10 mg Documented by: Ceftriaxone Sodium 2 gm/ (Sodium Chloride) 50 mls @ 100 mls/hr IV Q24 [facility] Last Infusion: 12/08/18 13:45 Dose: Infused Documented by: Vancomycin IV Pharmacy to Dose (1 ea/ Sodium Chloride) 500 mls @ 250 mls/hr IV PRN PRN; Protocol PRN Reason: Rx to Dose Vancomycin HCl 750 mg/ Sodium (Chloride) 265 mls @ 250 mls/hr IV Q12H [facility] Last Admin: 12/09/18 08:20 Dose: 250 mls/hr Documented by: Sodium Chloride () 250 mls @ 15 mls/hr IV .[id number] PRN PRN Reason: Saline Flush Last Infusion: 12/09/18 06:31 Dose: 0 mls/hr Documented by: Labetalol HCl (Trandate) 200 mg PO BID [facility] Last Admin: 12/08/18 22:00 Dose: 200 mg Documented by: Lisinopril (Zestril) 20 mg PO DAILY [facility] Last Admin: 12/08/18 10:39 Dose: 20 mg Documented by: Meloxicam (Mobic) 7.5 mg PO BID [facility] Last Admin: 12/08/18 22:00 Dose: 7.5 mg Documented by: Mesalamine (Apriso) 0.75 gm PO BID [facility] Last Admin: 12/08/18 22:02 Dose: 0.75 gm Documented by: Morphine Sulfate () 2 - 4 mg IV Q2H PRN PRN PRN Reason: Pain Score 6-10/10 Ondansetron HCl (Zofran) 4 mg IV Q8H PRN PRN PRN Reason: NAUSEA Last Admin: 12/07/18 02:01 Dose: 4 mg Documented by: Oxycodone HCl (Oxyir) 5 - 10 mg PO Q4H PRN PRN PRN Reason: Pain Score 4-10/10 Last Admin: 12/08/18 18:52 Dose: 5 mg Documented by: Pantoprazole Sodium (Protonix) 40 mg PO DAILY [facility] Last Admin: 12/08/18 10:40 Dose: 40 mg Documented by: Promethazine HCl (Phenergan) 12.5 mg IM Q6H PRN PRN; Protocol PRN Reason: NAUSEA/VOMITING Last Admin: 12/06/18 19:38 Dose: 12.5 mg Documented by: Rivaroxaban (Xarelto) 10 mg PO DAILY@0600 [facility] Last Admin: 12/09/18 05:00 Dose: 10 mg Documented by: Senna/Docusate Sodium (Senokot-S, Tonya-Colace) 2 tablet PO BID [facility] Last Admin: 12/08/18 22:00 Dose: 2 tablet Documented by: Sodium Chloride () 10 - 40 ml IV UD PRN PRN Reason: SALINE FLUSH Last Admin: 12/07/18 11:29 Dose: 20 ml Documented by: Throat Lozenges (Cepacol Sore Throat Lozenge) 1 lozenge MUCOUS MEM Q2H PRN PRN PRN Reason: SORE THROAT Last Admin: 12/08/18 11:07 Dose: 1 lozenge Documented by: Medical Necessity - Tobacco Use Smoking Status: Former smoker Tobacco Use: Non-smoker Assessment/Plan All Active Problems 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 Her postoperative course complicated by hypoxia and bilateral lower lobe healthcare associated versus aspiration pneumonia. #1 status post removal of left total knee replacement/placement of back spacer/placement of nonbiodegradable antibiotic delivery system: This was done for periprosthetic left knee infection, postoperative day 5. She is on IV Rocephin and vancomycin. She is on IV morphine and OxyIR PRN for pain. Orthopedic surgery is on the case. Infectious disease consulted, recommended to discharge patient on IV Rocephin and vancomycin. #2 Bilateral lower lobe healthcare associated versus aspiration pneumonia/hypoxia: She is on IV Zosyn, maintained on IV Rocephin and vancomycin. She has been afebrile, no leukocytosis. Her oxygenation improved and pulse ox today is 98% on 1 L. CTA chest done yesterday for elevated d-dimer and showed no PE, no dissection, revealed bilateral lower lobe consolidation. Patient mentioned that she used to use oxygen at home but not anymore. Home oxygen was set up for her to go home with. From medical standpoint, patient can be discharged on Augmentin twice daily for 7 days. Patient had allergy to penicillin with skin rash but she is stated that was long time ago. She was given IV Zosyn and she has no reaction to it. We will give her 1 dose of Augmentin p.o. this morning and if she does okay, she can be discharged on Augmentin. Augmentin prescription sent to her pharmacy electronically. #3 postoperative anemia: This is likely due to blood loss during surgery and hemodilution. Today's hemoglobin is 8.7 g/dL, stable. No evidence of active bleeding, no indication for transfusion. #4 hypertension: Blood pressure stable, continue lisinopril and labetalol. #5 peripheral vascular disease: Stable, continue aspirin and statins. #6 hyperlipidemia: Continue statins. #7 GERD: Stable, continue Protonix. #8 colitis: Stable, continue mesalamine. #9 DVT prophylaxis: Continue Xarelto. This note was generated with [employer] dictation software. It may contain incorrect words, spelling, and punctuation that were not noted in checking the note before signing. Code Visit Inpatient E&M: 66879 Subs Hosp L2
[2018-12-09] MEDS: Amox/Clavulanate 875 MG Tablet PO (09:02)
--- NOTE | 2018-12-09 09:04 | PCM.RX.CS ---
Consult Pharmacy has been consulted to manage selected antiobiotic: Vancomycin Type of Consult: Follow-up Suspected Infection: Pneumonia Prior Doses of Antibiotics Received/Current Regimen: 750mg iv q12h Labs: Sodium 141 mmol/L (136-145) 12/08/18 07:33 Potassium 4.2 mmol/L (3.5-5.1) 12/08/18 07:33 Chloride 105 mmol/L (98-107) 12/08/18 07:33 Carbon Dioxide 32.0 mmol/L (21.0-32.0) 12/08/18 07:33 Anion Gap 4 (5-15) L 12/08/18 07:33 BUN 18 mg/dL (7-18) 12/08/18 07:33 Creatinine 0.70 mg/dL (0.55-1.02) 12/08/18 07:33 Est GFR (MDRD) Af Amer 105 mL/min (>60) 12/08/18 07:33 Est GFR (MDRD) Non-Af 87 mL/min (>60) 12/08/18 07:33 BUN/Creatinine Ratio 25.6 RATIO (10-20) H 12/08/18 07:33 Glucose 100 mg/dL (74-106) 12/08/18 07:33 Vancomycin Trough 14.9 ug/mL (5.0-15.0) 12/09/18 07:15 Microbiology: Microbiology 12/04/18 Unknown Tissue - Knee Gram Stain - Final 12/04/18 Unknown Tissue - Knee Wound Culture - Preliminary No growth-Final to follow 12/04/18 Unknown Tissue - Knee Anaerobic Culture - Preliminary No growth in 48 hours. 12/04/18 Unknown Tissue - Knee Gram Stain - Final 12/04/18 Unknown Tissue - Knee Wound Culture - Preliminary No growth-Final to follow 12/04/18 Unknown Tissue - Knee Anaerobic Culture - Preliminary No growth in 48 hours. 12/04/18 Unknown Tissue - Knee Gram Stain - Final 12/04/18 Unknown Tissue - Knee Wound Culture - Preliminary No growth-Final to follow 12/04/18 Unknown Tissue - Knee Anaerobic Culture - Preliminary No growth in 48 hours. 11/25/18 13:51 Swab (Method) Nasal Screen MRSA/MSSA - Final Weight used for dosin.4 kg Estimated Creatinine Clearance: ~45ml/min Goal Trough: 15-20 mcg/mL Pharmacy Plan for Drug Dosing: Trough level this AM 14.9. Will continue 750mg iv q12h. Pharmacy Service will continue to monitor and adjust dosing as required.
[2018-12-09] MEDS: MESALAMINE 0.375 GM CAP.ER.24H 0.75 GM PO (10:17)
[2018-12-09] MEDS: Pantoprazole Sodium 40 MG Tablet PO (10:19)
[2018-12-09] MEDS: Famotidine 20 MG Tablet PO (10:19)
[2018-12-09] MEDS: Meloxicam 7.5 MG Tablet PO (10:19)
[2018-12-09] MEDS: Labetalol 200 MG Tablet PO (10:21)
[2018-12-09] MEDS: Lisinopril 20 MG Tablet PO (10:38)
[2018-12-09] MEDS: Ezetimibe 10 MG Tablet PO (10:39)
[2018-12-09] MEDS: Senna/Docusate Sodium 1 Tablet 2 TABLET PO (10:43)
--- NOTE | 2018-12-09 11:52 | PCM.PN.ID ---
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 Some burning around picc. No fever. Denies any cough/SOB/sputum/fever the past few days. - Physical Exam Vitals/I&O's: Vital Signs Temp Pulse Resp BP Pulse Ox 98.1 F 95 16 188/87 H 98 12/09/18 08:24 12/09/18 08:24 12/09/18 08:26 12/09/18 08:24 12/09/18 08:24 Oxygen Flow Rate (L/min) 1 Oxygen Delivery Method Nasal Cannula Weight: 83.461 kg Body Mass Index (BMI) 31.6 Intake and Output for Last 24 Hours 12/08/18 12/08/18 12/09/18 00:59 23:59 23:59 Intake Total 690.71 / 690.71 Output Total 700 / 700 Balance -9.29 / -9.29 General: Alert, Cooperative, No apparent distress Lungs: Clear to auscultation, Normal air movement Cardiovascular: Regular rate, Regular Rhythm Abdomen: Soft, Non Tender, Non-Distended Skin: No rashes Microbiology Past 72 Hours 12/04/18 Unknown Tissue - Knee Gram Stain - Final 12/04/18 Unknown Tissue - Knee Wound Culture - Preliminary No growth-Final to follow 12/04/18 Unknown Tissue - Knee Anaerobic Culture - Preliminary No growth in 48 hours. 12/04/18 Unknown Tissue - Knee Gram Stain - Final 12/04/18 Unknown Tissue - Knee Wound Culture - Preliminary No growth-Final to follow 12/04/18 Unknown Tissue - Knee Anaerobic Culture - Preliminary No growth in 48 hours. 12/04/18 Unknown Tissue - Knee Gram Stain - Final 12/04/18 Unknown Tissue - Knee Wound Culture - Preliminary No growth-Final to follow 12/04/18 Unknown Tissue - Knee Anaerobic Culture - Preliminary No growth in 48 hours. Laboratory Results 12/09/18 07:15: Hgb 8.7 L, Hct 28.0 L 12/09/18 07:15: Vancomycin Trough 14.9 Current Medications Acetaminophen (Tylenol) 1,000 mg PO Q8 [facility] Last Admin: 12/09/18 05:00 Dose: 1,000 mg Documented by: Albuterol/Ipratropium (Duoneb) 3 ml INHALATION Q6H.RT [facility] Last Admin: 12/09/18 07:31 Dose: 3 ml Documented by: Amoxicillin/Clavulanate Potassium (Augmentin Tablet) 875 mg PO BID [facility] Last Admin: 12/09/18 09:02 Dose: 875 mg Documented by: Aspirin (Aspirin, Baby) 81 mg PO DAILY@0800 [facility] Last Admin: 12/09/18 08:23 Dose: 81 mg Documented by: Atorvastatin Calcium (Lipitor) 80 mg PO QHS [facility] Last Admin: 12/08/18 22:00 Dose: 80 mg Documented by: Ezetimibe (Zetia) 10 mg PO DAILY [facility] Last Admin: 12/09/18 10:39 Dose: 10 mg Documented by: Enteral Nutritional Formula (Ensure Surgery) 237 ml PO TIDCM [facility] Last Admin: 12/09/18 08:22 Dose: Not Given Documented by: Famotidine (Pepcid) 20 mg PO DAILY [facility] Last Admin: 12/09/18 10:19 Dose: 20 mg Documented by: Hydralazine HCl (Apresoline Iv) 10 mg IV Q4H PRN PRN PRN Reason: Sys >160 Last Admin: 12/09/18 06:57 Dose: 10 mg Documented by: Ceftriaxone Sodium 2 gm/ (Sodium Chloride) 50 mls @ 100 mls/hr IV Q24 [facility] Last Admin: 12/09/18 10:39 Dose: 100 mls/hr Documented by: Vancomycin IV Pharmacy to Dose (1 ea/ Sodium Chloride) 500 mls @ 250 mls/hr IV PRN PRN; Protocol PRN Reason: Rx to Dose Vancomycin HCl 750 mg/ Sodium (Chloride) 265 mls @ 250 mls/hr IV Q12H [facility] Last Infusion: 12/09/18 09:25 Dose: Infused Documented by: Sodium Chloride () 250 mls @ 15 mls/hr IV .[id number] PRN PRN Reason: Saline Flush Last Infusion: 12/09/18 06:31 Dose: 0 mls/hr Documented by: Labetalol HCl (Trandate) 200 mg PO BID [facility] Last Admin: 12/09/18 10:21 Dose: 200 mg Documented by: Lisinopril (Zestril) 20 mg PO DAILY [facility] Last Admin: 12/09/18 10:38 Dose: 20 mg Documented by: Meloxicam (Mobic) 7.5 mg PO BID [facility] Last Admin: 12/09/18 10:19 Dose: 7.5 mg Documented by: Mesalamine (Apriso) 0.75 gm PO BID [facility] Last Admin: 12/09/18 10:17 Dose: 0.75 gm Documented by: Morphine Sulfate () 2 - 4 mg IV Q2H PRN PRN PRN Reason: Pain Score 6-10/10 Ondansetron HCl (Zofran) 4 mg IV Q8H PRN PRN PRN Reason: NAUSEA Last Admin: 12/07/18 02:01 Dose: 4 mg Documented by: Oxycodone HCl (Oxyir) 5 - 10 mg PO Q4H PRN PRN PRN Reason: Pain Score 4-10/10 Last Admin: 12/08/18 18:52 Dose: 5 mg Documented by: Pantoprazole Sodium (Protonix) 40 mg PO DAILY [facility] Last Admin: 12/09/18 10:19 Dose: 40 mg Documented by: Promethazine HCl (Phenergan) 12.5 mg IM Q6H PRN PRN; Protocol PRN Reason: NAUSEA/VOMITING Last Admin: 12/06/18 19:38 Dose: 12.5 mg Documented by: Rivaroxaban (Xarelto) 10 mg PO DAILY@0600 [facility] Last Admin: 12/09/18 05:00 Dose: 10 mg Documented by: Senna/Docusate Sodium (Senokot-S, Tonya-Colace) 2 tablet PO BID [facility] Last Admin: 12/09/18 10:43 Dose: 2 tablet Documented by: Sodium Chloride () 10 - 40 ml IV UD PRN PRN Reason: SALINE FLUSH Last Admin: 12/07/18 11:29 Dose: 20 ml Documented by: Throat Lozenges (Cepacol Sore Throat Lozenge) 1 lozenge MUCOUS MEM Q2H PRN PRN PRN Reason: SORE THROAT Last Admin: 12/08/18 11:07 Dose: 1 lozenge Documented by: Medical Necessity - Tobacco Use Smoking Status: Former smoker Tobacco Use: Non-smoker Route of nutrition/ use of supplements: [] Nutritional Intake: [] IV Site: [] Hurst Catheter: [] - Assessment/Plan Antibiotics: [] Assessment/Plan: [] Active and Suspected Problems Joint infection (Suspected) 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 Gonsales. Surg cx neg so far; single gram stain showing GPC. Aspiration from 10/28 was neg for growth. On iv vanc and ceftriaxone. Plan on 6 week course of empiric therapy, stop date 01/15/19. Weekly bmp, cbc, esr, and vanc trough. Adjusted vanc dose for discharge. Requested micro lab hold surg cxs for 14 days. Hypoxia - not clear that there was a pneumonia. Pt asymptomatic during this, no fever, no sputum, no leukocytosis. Zosyn was added over the weekend, but typically try to avoid dual beta-lactam therapy. No h/o emesis/aspiration during this time. Ok to stop augmentin and her to just go home on vanc/ceftriaxone as planned. Reviewed CT images, relatively mild bibasilar infiltrates/atelectasis. Will follow, d/w showcase trimmer, Dr. Gonsales. ID followup in 2 weeks in [place], can try to coordinate with ortho visits.
--- NOTE | 2018-12-09 12:10 | PCM.PN.BLA ---
Progress Note Patient is doing well today. No acute events overnight. Infectious disease reviewed the case this morning made recommendations for antibiotics and pneumonia treatment. Patient is comfortable. Remains in knee immobilizer. Exam is stable. 1. S/P explant left total knee arthroplasty with placement of antibiotic spacer POD #5 2. Continue Pain Medications: Tylenol and OxyIR 3. DVT Prophylaxis: Xarelto for 2 weeks postoperatively then will switch over to baby aspirin twice daily for an additional 2 weeks at 2-week postop visit 4. PT/OT: Toe-touch weightbearing with knee immobilizer on at all times with use of walker. 5. H & H: Hemoglobin is 8.7 stable 6. Reactive leukocytosis: White blood cell count is normalized 7. Encouraged Incentive Spirometry 8. Decreased pulse ox: Patient continues to oxygenate well with his low was 1-2 L of nasal cannula oxygen however drops below 90 without oxygen assistance. Infectious disease felt patient would be appropriate on cephalosporin and vancomycin which she is Bryce on. 9. Infectious disease consult: Appreciate input on appropriate management with antibiotics. Patient currently is on vancomycin and ceftriaxone per infectious disease for culture negative PJI with empiric coverage. Gram-positive cocci on 1 Gram stain. Knee is doing well. Vanc trough was appropriate today. Doses have been adjusted. Vancomycin will be monitored through infectious disease 10. Disposition: Case management involved for appropriate discharge and placement. Patient is going to proceed with home health care and states she has a daughter who is a nurse that can assist her at home. At this time the hope is that she can be discharged home today. [facility] Office: [place] Vital Signs/Narrative: Vital Signs Temp Pulse Resp BP Pulse Ox 12/09/18 08:26 16 12/09/18 08:24 98.1 F 95 16 188/87 H 98
--- NOTE | 2018-12-09 14:43 | CASEMGMT ---
PRISCA TUCKER received updated script from ID for new vancomycin order. RN GARRETT sent script and updated [facility] of new vanco order and confirmed discharge for today. PRISCA TUCKER updated [facility] of planned discharge today and confirmed start of care for anne marie at 1999. RN GARRETT updated patient regarding planned discharge for today and confirmation of HHC and new IV Vanco order. Patient states her home IV ATBs are in fridge, nursing verified. PRISCA TUCKER asked patient if she could updated daughter Shelly of discharge plans and patient given permission. RN GARRETT updated daughter Shelly of HHC and IV ATBs with start of care for this evening. Daughter confirmed that she will be at patient's home when [facility] arrives. With patient's permission RN GARRETT called patient's friend Mikael and updated that patient will be discharging today to home and arranged transportation with Mikael. PRISCA TUCKER faxed updated clinical information and discharge instructions to [facility].
== END 2018-12-09 15:59 | disposition home or self-care (01) | DRG 466 ==
LOC: ACINP 11:00 → MS3 12-05 08:33
PROVIDERS: Hospitalist; Internal Medicine Infectious Disease; Admitting Provider Specialist; Referring Provider Specialist; Visit Provider Specialist
PROC: 0SPD0JZ Removal of Synthetic Substitute from Left Knee Joint, Open Approach (ICD-10-PCS; principal; 2018-12-04 13:45)
DX: T84.54XA Infection and inflammatory reaction due to internal left knee prosthesis, initial encounter (principal); J18.9 Pneumonia, unspecified organism; D62 Acute posthemorrhagic anemia; Y83.1 Surgical operation with implant of artificial internal device as the cause of abnormal reaction of the patient, or of later complication, without mention of misadventure at the time of the procedure; T84.84XA Pain due to internal orthopedic prosthetic devices, implants and grafts, initial encounter; Z96.652 Presence of left artificial knee joint; M79.7 Fibromyalgia; I10 Essential (primary) hypertension; Z87.891 Personal history of nicotine dependence; E78.00 Pure hypercholesterolemia, unspecified; I73.9 Peripheral vascular disease, unspecified; E66.9 Obesity, unspecified; Z68.31 Body mass index [BMI] 31.0-31.9, adult
CPT/HCPCS: 36415; 36569; 71045; 71275; 73560; 80048; 80202; 82962; 85014; 85018; 85025; 85027; 85379; 87015; 87070; 87075; 87081; 87102; 87116; 87205; 87206; 88305; 88311; 88331; 88332; 94640; 97110; 97116; 97162; 97166; 97530; 97535; 97802; 99251; 99406; C1776; J7030; J7040; J7050; J7120; Q9967; A4216; G0463; J0696; J1940; J2405; J3260